=== PATIENT | female | born 1935 ===

== ENCOUNTER 2019-04-01 11:02 | Inpatient (IN) ==
[2019-04-01 15:33] LABS: ABG Base Excess 6 mEq/L (-2 to 3); ABG HCO3 36 mEq/L (21-27); ABG Oxygen Saturation 93 % (95-98); ABG PCO2 78 mmHg (35-45); ABG PH 7.27 pH Units (7.32-7.45); ABG PO2 80 mmHg (85-104); ABG TCO2 38 mEq/L (20-26)
[2019-04-01] MEDS ORDERED: Naloxone 0.4 MG/ML INJ IVP PRN (15:40)
[2019-04-01] MEDS ORDERED: Mag Hydrox/Al Hydrox/Simeth 30 ML UDC PO PRN (15:40)
[2019-04-01] MEDS ORDERED: *HR* Promethazine 25 MG/ML VIAL IVP PRN (15:40)
[2019-04-01] MEDS ORDERED: traMADol 50 MG TABLET PO PRN (15:40)
[2019-04-01] MEDS ORDERED: Acetaminophen 325 MG TABLET PO PRN (15:40)
[2019-04-01] MEDS ORDERED: Ondansetron 4 MG/2 ML VIAL IVP PRN (15:40)
--- NOTE | 2019-04-01 15:57 | Internal Med History&Physical ---
Date of Encounter: 04/01/19 Time of Encounter: 15:48 Internal Medicine - H&P: HPI Admitted From: Home Plans for Post Hospital Care: Home History of present illness: Ms. Torres is a 83 year old female with past medical history significant for h ypertension and osteoarthritis who originally presented to [facility] for shortness of breath associated with generalized weakness, productive cough, nasal congestion and abdominal pain The initial workup at the hospital ED showed sodium 129, proBNP 2552. Pro-calcitonin < 0.05, the rest of CBC and BMP were unremarkable. Cardiac enzyme was negative. EKG demonstrated atrial fibrillation with rapid ventricular response and multiple PVCs. A CT of abdomen/pelvis was performed which revealed moderate ascites with bilateral pleural effusions, cholelithiasis, and aortic atherosclerosis. Patient was admitted and she was started on Cardizem drip and heparin drip. On the third hospital day at [facility], patient was noticed to have change of mental status. At that time, a CT of brain was performed which revealed chronic microvascular changes without bleeding or mass effect. An ABG was obtained which showed respiratory acidosis pH 7.20 with significantly elevated CO2 level at 91. There is a concern that the patient might have a stroke, patient was transferred to this institute for further evaluation and management. Upon arrival to the floor, patient is alert and oriented although somewhat drowsy, her vital signs were stable with heart rate at 85, blood pressure 105/78, 91% on 5 L oxygen per nasal cannula. An ABG was obtained which showed respiratory acidosis with pH 7.27, PCO2 78, this results showed improvement in comparison to from [facility]. CT chest was ordered. Pulmonology was consulted. BiPAP was ordered. CODE STATUS discussed with patient, she wishes to be full code. Internal Medicine - H&P: Meds Allergy/AdvReac Type Severity Reaction Status Date / Time Penicillins Allergy Vomiting Verified 04/01/19 15:09 All Systems PM: A 10-system review of systems was performed and is negative for pertinent findings except as documented above in the HPI. Review of systems: REVIEW OF SYSTEMS: CONSTITUTIONAL: No weight loss, fever, chills, weakness or fatigue. HEENT: Eyes: No visual loss, blurred vision, double vision or yellow sclerae. Ears, Nose, Throat: No hearing loss, sneezing, congestion, runny nose or sore throat. SKIN: No rash or itching. CARDIOVASCULAR: No chest pain, chest pressure or chest discomfort. No palpitations or edema. RESPIRATORY: See history of present illness. GASTROINTESTINAL: No anorexia, nausea, vomiting or diarrhea. See history of present illness. GENITOURINARY: No dysuria, urgency, or frequency. NEUROLOGICAL: No headache, dizziness, syncope, paralysis, ataxia, numbness or tingling in the extremities. No change in bowel or bladder control. MUSCULOSKELETAL: No muscle, back pain, joint pain or stiffness. HEMATOLOGIC: No anemia, bleeding or bruising. LYMPHATICS: No enlarged nodes. No history of splenectomy. PSYCHIATRIC: No history of depression or anxiety. ENDOCRINOLOGIC: No reports of sweating, cold or heat intolerance. No polyuria or polydipsia. - Constitutional Vitals: Temp Pulse Resp BP Pulse Ox 97.8 F 85 18 105/78 91 04/01/19 15:24 04/01/19 15:24 04/01/19 15:24 04/01/19 15:24 04/01/19 15:24 General appearance: Present: A&O X 3 Exam: PHYSICAL EXAMINATION: GENERAL APPEARANCE: The patient is alert, oriented and in no acute distress. HEENT: Head is normocephalic. The sinuses are nontender. Pupils are equal and reactive. The nares are patent. Oropharynx clear without lesions. NECK: Supple without lymphadenopathy. HEART: Regular rate and rhythm. LUNGS: Decreased breathing sounds bilaterally. ABDOMEN: Soft, nontender, nondistended with good bowel sounds heard. Inguinal area is normal. EXTREMITIES: Without cyanosis, clubbing or edema. NEUROLOGICAL: Gross nonfocal. SKIN: Warm and dry without any rash. Internal Med - H&P Results - ABG Interpretation ABG results: 04/01/19 15:28 ABG pH 7.27 L ABG pCO2 78 H* ABG pO2 80 L ABG HCO3 36 H ABG Total CO2 38 H ABG O2 Saturation 93 L ABG Base Excess 6 H - Assessment and Plan (1) Change in mental status Current Visit: Yes Status: Acute Assessment and plan: This is a 83-year-old female with history of hypertension and [facility] failure. She has no history of COPD or CHF. CT abdomen/pelvis showed bilateral moderate amount of pleural effusion and a large amount of ascites. ProBNP was significantly elevated. EKG showed atrial fibrillation with RVR. She was started on Cardizem drip and anticoagulation was also initiated. Patient developed acute mental status change, so the hospital at [facility] and was transferred here for further evaluation. No focal deficit was appreciated on physical exam. CT of head has no acute abnormalities. The etiology of mental status change is likely secondary to systemic disease including acute respiratory failure rather than neurological pathologies such as stroke. We will order MRI of brain to rule out stroke. We will continue to treat the underlying disease including acute respiratory failure. Continue to monitor patient mental status. Qualifiers: Altered mental status type: unspecified Qualified Code(s): R41.82 - Altered mental status, unspecified (2) Acute respiratory failure with hypoxia and hypercapnia Current Visit: Yes Status: Acute Assessment and plan: Patient has no history of COPD. ABG showed respiratory acidosis with significant elevated PCO2 and slightly decreased PO2. CT of abdomen at [facility] showed mode rate amount of pleural effusion bilaterally. ProBNP was also significantly elevated. Clinical picture fits in an acute congestive heart failure. Echocardiogram ordered. Will order CT chest to rule out pulmonary etiologies. Blood culture and sputum culture were ordered. We will start patient on IV Lasix. DuoNeb as needed plus scheduled dose. Broad-spectrum IV antibiotics with cefepime and vancomycin, tailor treatment test on culture results. BiPAP daily at bedtime and as needed. We will repeat ABG in a.m. to monitor progress. Pulmonology consult. (3) Atrial fibrillation Current Visit: Yes Status: Acute Assessment and plan: Rate controlled, will continue low dose of oral Cardizem, continue Eliquis. Qualifiers: Atrial fibrillation type: persistent Qualified Code(s): I48.1 - Persistent atrial fibrillation (4) Acute congestive heart failure Current Visit: Yes Status: Acute Assessment and plan: Continue IV Lasix. Pending echocardiogram. Qualifiers: Heart failure type: unspecified Qualified Code(s): I50.9 - Heart failure, unspecified (5) History of hypertension Current Visit: No Status: Chronic Assessment and plan: BP well controlled, continue home medication. (6) DVT prophylaxis Current Visit: Yes Status: Acute Assessment and plan: Patient on Eliquis. - Time Spent With Patient Total time spent is greater than 50% in coordination of care (as documented) at patient's floor/unit and/or counseling patient: Greater than 35 minutes
[2019-04-01] MEDS ORDERED: Isovue-370 500 ML BOTTLE IVP ONE (16:17)
[2019-04-01] MEDS ORDERED: Ipratropium/Albuterol Neb 3 ML IH PRN (16:18)
[2019-04-01] MEDS ORDERED: Cefepime HCl 2,000 MG in 0.9 % Sodium Chloride Mini Bag 100 ML IVPB ONE (16:31)
[2019-04-01] MEDS: Furosemide 40 MG/4 ML VIAL IVP SCH (17:17)
[2019-04-01 17:46] LABS: eGFR For African Americans > 60 (> 60); eGFR For Non-African Americans > 60 (> 60)
[2019-04-01 17:47] LABS: Troponin I < 0.03 ng/mL (< 0.04)
[2019-04-01] MEDS ORDERED: Perflutren Lipid Microsphere 1.3 ML in 0.9 % Sodium Chloride 8.7 ML IVP ONE (18:31)
[2019-04-01] MEDS: Ipratropium/Albuterol Neb 3 ML IH SCH ×2 (20:24→23:39)
[2019-04-01 20:52] LABS: Basophils % 0.2 %; Hematocrit 40.6 % (35.3-44.9); Hemoglobin 13.1 g/dL (11.5-15.4); Immature Granulocytes % 0.9 % (0-4); Lymphocytes # 1.2 K/mcL (0.6-4.6); Lymphocytes % 9.7 %; Mean Corpuscular HGB Conc 32.3 g/dL (31.6-35.5); Mean Corpuscular Hemoglobin 33.4 pg (28.0-33.3); Mean Corpuscular Volume 103.6 fL (83.0-100.0); Mean Platelet Volume 9.5 fL (9.4-12.4); Monocytes # 0.8 K/mcL (0.0-1.3); Monocytes % 6.9 %; Neutrophils # 9.7 K/mcL (1.6-8.9); Nucleated Red Blood Cells 0.5 /100 WBC (0); Platelet Count 241 K/mcL (140-400); Red Blood Count 3.92 M/mcL (3.82-4.97); Red Cell Distribution Width 13.4 % (11.5-14.5); Segmented Neutrophils % 82.3 %; White Blood Count 11.8 K/mcL (4.3-11.1)
[2019-04-01] MEDS ORDERED: Apixaban 5 MG TABLET PO SCH (21:00)
[2019-04-01 21:15] LABS: Alanine Aminotransferase 55 Units/L (7-52); Albumin 3.8 g/dL (3.5-5.7); Albumin/Globulin Ratio 1.6 (1.1-2.2); Alkaline Phosphatase 57 Units/L (34-104); Aspartate Amino Transferase 35 Units/L (13-39); BUN/Creatinine Ratio 27 (6-26); Bilirubin,Total 0.6 mg/dL (0.3-1.0); Blood Urea Nitrogen 15 mg/dL (8-23); Calcium 8.7 mg/dL (8.6-10.3); Carbon Dioxide 36 mEq/L (23-29); Chloride 86 mEq/L (98-107); Globulin 2.4 g/dL (2.4-3.5); Glucose 132 mg/dL (70-105); Osmolality,Calculated 265 (280-300); Potassium 4.4 mEq/L (3.5-5.1); Sodium 126 mEq/L (136-145); Total Protein 6.2 g/dL (6.4-8.9); eGFR For African Americans > 60 (> 60); eGFR For Non-African Americans > 60 (> 60)
[2019-04-02] MEDS ORDERED: *HR* Enoxaparin 100 MG/ML SYRINGE SQ SCH ×2 (00:45→18:00)
[2019-04-02] MEDS: Ipratropium/Albuterol Neb 3 ML IH SCH ×5 (04:01→20:13)
[2019-04-02 05:35] LABS: Hematocrit 39.3 % (35.3-44.9); Hemoglobin 12.6 g/dL (11.5-15.4); Mean Corpuscular HGB Conc 32.1 g/dL (31.6-35.5); Mean Corpuscular Hemoglobin 33.4 pg (28.0-33.3); Mean Corpuscular Volume 104.2 fL (83.0-100.0); Mean Platelet Volume 9.3 fL (9.4-12.4); Platelet Count 250 K/mcL (140-400); Red Blood Count 3.77 M/mcL (3.82-4.97); Red Cell Distribution Width 13.2 % (11.5-14.5); White Blood Count 10.5 K/mcL (4.3-11.1)
[2019-04-02 05:53] LABS: BUN/Creatinine Ratio 32 (6-26); Blood Urea Nitrogen 18 mg/dL (8-23); Calcium 9.1 mg/dL (8.6-10.3); Carbon Dioxide 34 mEq/L (23-29); Chloride 86 mEq/L (98-107); Glucose 99 mg/dL (70-105); Osmolality,Calculated 270 (280-300); Potassium 4.2 mEq/L (3.5-5.1); Sodium 129 mEq/L (136-145); eGFR For African Americans > 60 (> 60); eGFR For Non-African Americans > 60 (> 60)
[2019-04-02 06:04] LABS: Thyroid Stimulating Hormone 0.923 mcIU/mL (0.340-5.600)
[2019-04-02] MEDS: Cefepime HCl 2,000 MG in Water for inj. (sterile) 20 ML IVP SCH ×2 (06:23→18:02)
--- NOTE | 2019-04-02 07:13 | Event Note ---
Date of Encounter: 04/01/19 Time of Encounter: 21:37 Alerted by pts. nurse AMAURI Antonio that the pt. was admitted w/ respiratory acidosis, CVA rule out, and hyponatremia. Pts. nurse was reporting that the pt. was somnolent and altered and had been so for some time. Pts. family present and concerned. Went to see the pt. immediately who was on BiPAP and minimally responsive. Pt. had CTA of the chest done which showed no evidence of pulmonary embolic disease. Enlarged main pulmonary artery consistent with pulmonary hypertension. Bilateral pleural effusions, right greater than left. Complete right lower lobe atelectasis with dependent left lower lobe and right upper lobe atelectasis. Cardiomegaly with atherosclerotic calcification of the coronary circulation. Elevated right heart pressures with reflux at based fixation of the hepatic veins and IVC. Small quantity of upper abdominal ascites. Cholelithiasis with a 2.1 cm stone projecting in the gallbladder neck. Pts. family denied hx of COPD, respiratory issues, or chirrhosis. I discussed the CTA findings w/family regarding the Pulmonology consult which was ordered and the findings which may suggest liver involvement and pleural effusions which are all working against the pts. respiratory status currently. Patient also has new onset of Afib which was concerning to family d/t anticoagulation needs. D/t pts. somnolence and not passing dysphasia screen, order for Eliquis cancelled and weight-based Lovenox Q12HR ordered. I explained the patient is currently getting 40 mg IVP lasix BID which should help with the pleural effusions. RT called to adjust pts. BiPAP settings d/t ABG w/CO2 of 78. Stat ammonia ordered which was 41, down from 55 at [facility]. Plan is to transfer the pt. to [facility] for higher level of care d/t current picture. Family expressed understanding and agreement to plan of care and f/u. Nurse instructed to continue monitoring the pt. very closely and alert me immediately of any adverse changes. Family and E nurse instructed to contact me with any further questions, concerns, or adverse changes.
[2019-04-02] MEDS: Furosemide 40 MG/4 ML VIAL IVP SCH ×2 (08:42→16:37)
--- NOTE | 2019-04-02 08:45 | Pulmonology Consult Note ---
<Maco Ortez - Last Filed: 04/02/19 09:48> Date of Encounter: 04/02/19 Time of Encounter: 08:41 Assessment and Plan (1) Acute respiratory failure with hypoxia and hypercapnia Current Visit: Yes Status: Acute Pt presented with acute hypoxic respiratory failure - Likely secondary to acute decompensated heart failure - Respiratory distress and need for supplemental Oxygen - ABG pH 7.27, pCO2 78 - Was on BiPAP last night - Blood and sputum cultures pending - Improving - No respiratory distress at rest Plan: - Continue duonebs q4h - Continue diuresesing with lasix - Echo pending - Supplemental O2 via nasal cannula as needed (2) Acute decompensated heart failure Current Visit: Yes Status: Acute Acute decompensated Heart failure - Pt presented with worsening SOB on exertion - Hx of Hypertension - No pedal edema or JVD on exam Zuñiga: - Lasix for diuresis - Echo pending (3) Pulmonary hypertension Current Visit: Yes Status: Acute Pulmonary Hypertension - Enlarged pulmonary artery on CTA chest - Likely secondary to heart failure Plan: - As above (4) Pleural effusion Current Visit: Yes Status: Acute Bilateral pleural effusion - Noted on CTA chest - Respiratory status improving with diuresis - Likely secondary to acute decompensated heart failure Plan: - Will continue to monitor - Consider thoracentesis if it does not improve with diuresis (5) Atrial fibrillation with RVR Current Visit: Yes Status: Acute New onset Afib - Management per primary History of Present Illness Consult date: 04/02/19 Chief complaint: SOB History of present illness: Ms. Torres is an 83-year-old with a past medical history of hypertension and osteoarthritis. She originally presented to [facility] in [place] for shortness of breath with associated generalized weakness. She reported having productive cough of clear sputum for a few days prior to admission. Workup at [facility] showed patient had a CHF exacerbation with atrial fibrillation. ProBNP was 2552, pro calcitonin was less than 0.05, CT abdomen and pelvis revealed moderate ascites with bilateral pleural effusions. She was admitted to [facility] and started on Cardizem drip and heparin drip. On third hospital day at [facility] she was noticed to have a change mental status. CT of brain showed no b leeding or acute intracranial process. ABG showed respiratory acidosis pH 7.20. She was transferred to [facility] for stroke concerns. Sole heart rate is 85, blood pressure 105/78, oxygen saturation 91% on 5 L oxygen via nasal cannula. ABG showed respiratory acidosis with pH 7.27, PCO2 78. CTA chest showed no PE, enlarged pulmonary artery, bilateral pleural effusions, right greater than left, cardiomegaly with atherosclerotic calcification and coronary circulation. EKG showed A. fib with RVR. She was started on IV Lasix, anticoagulation with Lovenox, scheduled DuoNeb's, vancomycin and Ceftin, blood and sputum cultures pending, and pulmonology was consulted. Last night patient was somnolent with altered mental status and concern this patient was minimally responsive. Patient had been on BiPAP. BiPAP settings were adjusted. Patient was transferred due to [facility] for higher level of care. When seen this morning patient was improving, sitting comfortably in bed. She was on 5 L via nasal cannula. She reported no respiratory distress, shortness of breath, or chest pain. Denies history of pulmonary disease, or history of smoking. Past Med Surg Social Fam HX - Past Medical History Medical history: arthritis, hypertension Additional medical history: back pain Psychiatric history: no psych history - Past Surgical History Additional surgical history: lipoma removed - Social History Smoking Status: Never smoker - Family History Mother Hx Family Neuromuscular Disorders: Yes (Stroke) Medications and Allergies Allergy/AdvReac Type Severity Reaction Status Date / Time Penicillins Allergy Vomiting Verified 04/01/19 15:09 All Systems: The remainder of the systems were reviewed and are negative Review of Systems: Constitutional: Reprtos weakness, fatigue. Denies fevers, chills, weight loss Head/Neck: Denies [place], neck stiffness EENT: Reports rhinorrhea, congestion. Denies vision changes/blurriness, sore throat CVS: Denies chest pain, palpitations, orthopnea, edema Pulm: Reports SOB, Cough, clear sputum. Denies hemoptysis, wheezing GI: Denies abdominal pain, nausea, vomiting, diarrhea, constipation, melena, hematemasis : Denies dysuria, increased frequency, urgency, hematuria Heme: Denies ease of bleeding or bruising MSK: Denies joint pain, limited ROM Skin: Denies rashes, ulcers, color changes Neuro: Denies [place], paresthesias, focal deficits, ataxia Physical Examination Vital Signs: Vital Signs, Last 4 Hours Temp Pulse Resp BP Pulse Ox 04/02/19 07:36 16 94 04/02/19 07:31 97.8 F 98 101/66 94 Gen: Vitals noted. No acute distress. On 5L O2 via nasal cannula Eyes: anicteric sclerae, moist conjunctivae. Pupils equal, round, and reactive to light HENT: Atraumatic, normocephalic; oropharynx clear with moist mucous membranes and no mucosal ulcerations Neck: Trachea midline; supple, no thyromegaly or lymphadenopathy Cardiac: Tachycardic, irregular rhythm, no murmurs, rubs, or gallops, S1/S2, No JVD Pulmonary: Decreased breath sounds BL. BL lower lobe crackles. Abdomen: soft, nontender, no rigidity or guarding. No masses or hepatos plenomegaly MSK: ROM intact, no joint swelling noted Extremities: no BLE edema, nontender calf, no cyanosis or clubbing Skin: Normal temperature, turgor and texture; no rash, ulcers or subcutaneous nodules Neuro: moves all extremities, no focal deficits. Psych: Appropriate mood and behavior. A&Ox3 Results - Laboratory Findings CBC and BMP: 04/02/19 05:10 04/02/19 05:10 ABG ABG pH 7.27 pH Units (7.32-7.45) L 04/01/19 15:28 ABG pCO2 78 mmHg (35-45) H* 04/01/19 15:28 ABG pO2 80 mmHg (85-104) L 04/01/19 15:28 ABG O2 Saturation 93 % (95-98) L 04/01/19 15:28 Abnormal lab findings: Abnormal lab results WBC 11.8 K/mcL (4.3-11.1) H 04/01/19 20:35 RBC 3.77 M/mcL (3.82-4.97) L 04/02/19 05:10 MCV 104.2 fL (83.0-100.0) H 04/02/19 05:10 MCH 33.4 pg (28.0-33.3) H 04/02/19 05:10 MPV 9.3 fL (9.4-12.4) L 04/02/19 05:10 Neutrophils # 9.7 K/mcL (1.6-8.9) H 04/01/19 20:35 Nucleated RBCs/100 WBC 0.5 /100 WBC (0) H 04/01/19 20:35 ABG pH 7.27 pH Units (7.32-7.45) L 04/01/19 15:28 ABG pCO2 78 mmHg (35-45) H* 04/01/19 15:28 ABG pO2 80 mmHg (85-104) L 04/01/19 15:28 ABG HCO3 36 mEq/L (21-27) H 04/01/19 15:28 ABG Total CO2 38 mEq/L (20-26) H 04/01/19 15:28 ABG O2 Saturation 93 % (95-98) L 04/01/19 15:28 ABG Base Excess 6 mEq/L (-2 to 3) H 04/01/19 15:28 Sodium 129 mEq/L (136-145) L 04/02/19 05:10 Chloride 86 mEq/L (98-107) L 04/02/19 05:10 Carbon Dioxide 34 mEq/L (23-29) H 04/02/19 05:10 Creatinine 0.57 mg/dL (0.60-1.20) L 04/02/19 05:10 BUN/Creatinine Ratio 32 (6-26) H 04/02/19 05:10 Glucose 132 mg/dL (70-105) H 04/01/19 20:35 POC Glucose 163 mg/dL (70-99) H 04/01/19 15:22 Calculated Osmolality 270 (280-300) L 04/02/19 05:10 ALT 55 Units/L (7-52) H 04/01/19 20:35 B-Natriuretic Peptide 716 pg/mL (Less than 100) H 04/01/19 20:35 Serum Total Protein 6.2 g/dL (6.4-8.9) L 04/01/19 20:35 - Microbiology Findings Microbiology Findings: Microbiology, Last 48 Hours 04/01/19 17:10 Blood Culture - Preliminary Peripheral Venipuncture Culture is incubating and being continuously monitored for growth. Final report to follow. 04/01/19 17:39 Blood Culture - Preliminary Peripheral Venipuncture Culture is incubating and being continuously monitored for growth. Final report to follow. - Clinical Findings Intake & Output: Intake & Output 04/01/19 04/02/19 04/02/19 23:59 07:59 15:59 Intake Total 350 / 350 0 / 0 Output Total 0 / 0 Balance 350 / 350 0 / 0 Weight 88.2 kg 88 kg Consult Discharge Plan - Plan Referrals: Kathrin Bowers, MAYRA [Primary Care Provider] - <Marco Ordaz W - Last Filed: 04/02/19 10:45> Date of Encounter: 04/02/19 All Systems: The remainder of the systems were reviewed and are negative Physical Examination Vital Signs: Vital Signs, Last 4 Hours Temp Pulse Resp BP Pulse Ox 04/02/19 07:36 16 94 04/02/19 07:31 97.8 F 98 101/66 94 Results - Laboratory Findings CBC and BMP: 04/02/19 05:10 04/02/19 05:10 ABG ABG pH 7.27 pH Units (7.32-7.45) L 04/01/19 15:28 ABG pCO2 78 mmHg (35-45) H* 04/01/19 15:28 ABG pO2 80 mmHg (85-104) L 04/01/19 15:28 ABG O2 Saturation 93 % (95-98) L 04/01/19 15:28 Abnormal lab findings: Abnormal lab results WBC 11.8 K/mcL (4.3-11.1) H 04/01/19 20:35 RBC 3.77 M/mcL (3.82-4.97) L 04/02/19 05:10 MCV 104.2 fL (83.0-100.0) H 04/02/19 05:10 MCH 33.4 pg (28.0-33.3) H 04/02/19 05:10 MPV 9.3 fL (9.4-12.4) L 04/02/19 05:10 Neutrophils # 9.7 K/mcL (1.6-8.9) H 04/01/19 20:35 Nucleated RBCs/100 WBC 0.5 /100 WBC (0) H 04/01/19 20:35 ABG pH 7.27 pH Units (7.32-7.45) L 04/01/19 15:28 ABG pCO2 78 mmHg (35-45) H* 04/01/19 15:28 ABG pO2 80 mmHg (85-104) L 04/01/19 15:28 ABG HCO3 36 mEq/L (21-27) H 04/01/19 15:28 ABG Total CO2 38 mEq/L (20-26) H 04/01/19 15:28 ABG O2 Saturation 93 % (95-98) L 04/01/19 15:28 ABG Base Excess 6 mEq/L (-2 to 3) H 04/01/19 15:28 Sodium 129 mEq/L (136-145) L 04/02/19 05:10 Chloride 86 mEq/L (98-107) L 04/02/19 05:10 Carbon Dioxide 34 mEq/L (23-29) H 04/02/19 05:10 Creatinine 0.57 mg/dL (0.60-1.20) L 04/02/19 05:10 BUN/Creatinine Ratio 32 (6-26) H 04/02/19 05:10 Glucose 132 mg/dL (70-105) H 04/01/19 20:35 POC Glucose 163 mg/dL (70-99) H 04/01/19 15:22 Calculated Osmolality 270 (280-300) L 04/02/19 05:10 ALT 55 Units/L (7-52) H 04/01/19 20:35 B-Natriuretic Peptide 716 pg/mL (Less than 100) H 04/01/19 20:35 Serum Total Protein 6.2 g/dL (6.4-8.9) L 04/01/19 20:35 - Microbiology Findings Microbiology Findings: Microbiology, Last 48 Hours 04/01/19 17:10 Blood Culture - Preliminary Peripheral Venipuncture Culture is incubating and being continuously monitored for growth. Final report to follow. 04/01/19 17:39 Blood Culture - Preliminary Peripheral Venipuncture Culture is incubating and being continuously monitored for growth. Final report to follow. - Clinical Findings Intake & Output: Intake & Output 04/01/19 04/02/19 04/02/19 23:59 07:59 15:59 Intake Total 350 / 350 0 / 120 120 / 120 Output Total 0 / 0 Balance 350 / 350 0 / 120 120 / 120 Weight 88.2 kg 88 kg - Attending Attestation I examined this patient and my medical decision-making was reviewed with the Resident Physician. I agree with the documented findings, disposition and treatment plan as described except to the extent set forth below. We independently had [id number] contact with the patient Patient seen and examined at bedside Labs, radiology, chart personally reviewed. CT personally interpreted: Right elevated hemithorax. Bilateral effusions right greater than left Impression/Recs: 1. Acute hypoxic hypercapnic respiratory failure 2. Decompensated heart failure 3. Bilateral pleural effusions 4. A. fib with RVR 5. Pulmonary hypertension Recs: -Recommend conservative management of pleural effusions at this point doubt that thoracentesis would provide much benefit from patient comfort or improvement in hypoxemia. These are undoubtedly from heart failure. If further concern exists per primary team Lovenox should be held and would recommend consultation with interventional radiology for therapeutic thoracentesis -Agree with diuretic - trend renal function and electrolytes including magnesium daily -BiPAP as needed of the day for work of breathing I suspect over the next 24-48 hours she will benefit from positive airway pressure at night otherwise keep oxygen saturation around 90-92% at all times she will likely need walking pulse oximetry prior to discharge -Suspect the etiology of pulmonary hypertension is secondary to pulmonary venous hypertension from left heart failure -Echocardiogram is warranted along with formal cardiology consultation -Management of A. fib per primary team Do not hesitate to call me with any questions or concerns Mohit Ordaz [phone]
--- NOTE | 2019-04-02 09:30 | Neurology - Consult Note ---
<Matty Hoskins - Last Filed: 04/02/19 13:07> Date of Encounter: 04/02/19 Time of Encounter: 09:27 Assessment and Plan (1) Change in mental status Current Visit: Yes Status: Acute Presented from an [facility] with AMS and concerns for CVA -originally presented to [facility] with weakness, fatigue and in a-fib with RVR -subsequently developed AMS and acute hypoxic respiratory failure with hypercapnea 2/2 acute decompensated HF Neurologically she is intact today without any focal or lateralizing findings. Family reports that she is almost back to baseline. AMS most likely 2/2 HF and respiratory failure; being managed by IM team. However, we will r/o an acute ischemic event and r/o seizure etiology as well; although low suspicion for both. MRI brain and EEG pending. Qualifiers: Altered mental status type: unspecified Qualified Code(s): R41.82 - Altered mental status, unspecified History of Present Illness Chief complaint: Altered mental state HPI: Ms. Torres is a 83 year old female with a PMH of HTN and OA who presented to [facility] from [facility] with an altered mental state in the setting of new a-fib RVR and acute decompensated heart failure and subsequent acute hypoxic respiratory with hypercapnea. [facility] for [facility] and thusly the patient was transferred and neurology evaluation has been sought. Currently she is A&OX4 and progressing back to her baseline mental state per her family who is at the bedside. She denies any visual disturbances, headache, neck pain/stiffness, dysphagia, dysarthria, parasthesias or motor weakness. She does admits to having dyspnea, generalized weakness and URI sx with cough and congestion prior to admission at [facility] (sx began approximately 4 days ago). These sx persist now as well and currently she is O2 dependent. CT head unremarkable. CTA chest negative for PE, ut shows b/l pleural effusions, right greater than left, complete right lower lobe atelectasis with dependent left lower lobe and right lower lobe atelectasis, cardiomegaly with elevated right heart pressures with reflux opacification of the hepatic veins. ABG on admission positive for acute hypoxic respiratory failure with hypercapnea. Past Med Surg Social Fam HX - Past Medical History Medical history: arthritis, hypertension Additional medical history: back pain Psychiatric history: no psych history - Past Surgical History Additional surgical history: lipoma removed - Social History Smoking Status: Never smoker - Family History Mother Hx Family Neuromuscular Disorders: Yes (Stroke) Medications and Allergies Allergy/AdvReac Type Severity Reaction Status Date / Time Penicillins Allergy Vomiting Verified 04/01/19 15:09 All Systems: The remainder of the systems were reviewed and are negative Review of Systems: REVIEW OF SYSTEMS NEUROLOGIC: Negative for any blurry vision, blind spots, double vision, facial asymmetry, dysphagia, dysarthria, hemiparesis, hemisensory deficits, vertigo, ataxia, seizures, paralysis, tingling, numbness, unilateral weakness or numbness/tingling POSITIVE: altered mental state PSYCH: agitation/irritability, anxiety, delirium POSITIVE: confusion MUSCULOSKELETAL: NEGATIVE: Joint pain, stiffness, loss of strength Physical Examination - Vital Signs Vital Signs: Initial Vital Signs Temp Pulse Resp BP Pulse Ox 97.8 F 85 18 105/78 91 04/01/19 15:24 04/01/19 15:24 04/01/19 15:24 04/01/19 15:24 04/01/19 15:24 - Exam Exam: Examination: General Examination: *CONSTITUTIONAL: Alert and oriented x3, no acute distress *GENERAL APPEARANCE OF PATIENT Elderly female who appears healthy and well groomed *EYES: pupils equal, round, reactive to light and accommodation, conjunctiva clear without masses or ulcerations, fundi normal. *CARDIOVASCULAR: no peripheral edema, distal temperature normal, dorsalis pedis pulses normal. Refer to vital signs * MUSCULOSKELETAL: *GAIT AND STATION: Deferred *ASSESSMENT OF MUSCLE STRENGTH IN THE UPPER AND LOWER EXTREMITIES bilateral deltoid, bicep, tricep, activities coordinator strength 4/5, hip flexors ,anterior tibialis, dorsoflexion of the foot 3/5 *MUSCLE TONE IN THE UPPER AND LOWER EXTREMITIES normal. No abnormal movements, fasciculations or atrophy identified. Neurological: *ORIENTATION to person, time and place *LANGUAGE AND FUNCTION no significant aphasia or dysarthia was noted. *ATTENTION AND CONCENTRATION are normal *LANGUAGE FUNCTION no significant aphasia or dysarthia was noted. *FUND OF KNOWLEDGE aware of current events, past history, vocabulary *MENTAL attention span and concentration normal. *CN II optic fundi were normal, no papilledema noted. *CN III,IV, PERRLA extraocular eye movements were full, no nystagmus and no ptosis noted. *CN V shows normal sensation and jaw opens symmetrically. *CN VII shows normal facial movement symmetrically, upper and lower bilaterally. *CN VIII shows no significant hearing loss on exam *CN IX-X palate elevated symmetrically *CN XI normal strength in the sternocleidomastoid muscles, symmetrical shoulder shrugging. *CN XII tongue protruded in the midline, with normal strength and movement. *SENSORY EXAMINATION light touch intact *REFLEXES: deep tendon reflexes were diminished diffusely, no pathological reflexes were noted. *CEREBELLAR TESTING normal finger to nose *PAIN LEVEL 0/10 Results - Laboratory Findings CBC and BMP: 04/02/19 05:10 04/02/19 05:10 Abnormal lab findings: Abnormal lab results WBC 11.8 K/mcL (4.3-11.1) H 04/01/19 20:35 RBC 3.77 M/mcL (3.82-4.97) L 04/02/19 05:10 MCV 104.2 fL (83.0-100.0) H 04/02/19 05:10 MCH 33.4 pg (28.0-33.3) H 04/02/19 05:10 MPV 9.3 fL (9.4-12.4) L 04/02/19 05:10 Neutrophils # 9.7 K/mcL (1.6-8.9) H 04/01/19 20:35 Nucleated RBCs/100 WBC 0.5 /100 WBC (0) H 04/01/19 20:35 ABG pH 7.27 pH Units (7.32-7.45) L 04/01/19 15:28 ABG pCO2 78 mmHg (35-45) H* 04/01/19 15:28 ABG pO2 80 mmHg (85-104) L 04/01/19 15:28 ABG HCO3 36 mEq/L (21-27) H 04/01/19 15:28 ABG Total CO2 38 mEq/L (20-26) H 04/01/19 15:28 ABG O2 Saturation 93 % (95-98) L 04/01/19 15:28 ABG Base Excess 6 mEq/L (-2 to 3) H 04/01/19 15:28 Sodium 129 mEq/L (136-145) L 04/02/19 05:10 Chloride 86 mEq/L (98-107) L 04/02/19 05:10 Carbon Dioxide 34 mEq/L (23-29) H 04/02/19 05:10 Creatinine 0.57 mg/dL (0.60-1.20) L 04/02/19 05:10 BUN/Creatinine Ratio 32 (6-26) H 04/02/19 05:10 Glucose 132 mg/dL (70-105) H 04/01/19 20:35 POC Glucose 163 mg/dL (70-99) H 04/01/19 15:22 Calculated Osmolality 270 (280-300) L 04/02/19 05:10 ALT 55 Units/L (7-52) H 04/01/19 20:35 B-Natriuretic Peptide 716 pg/mL (Less than 100) H 04/01/19 20:35 Serum Total Protein 6.2 g/dL (6.4-8.9) L 04/01/19 20:35 Consult Discharge Plan - Plan Referrals: Kathrin Bowers CNP [Primary Care Provider] - <Donaldo Cuenca I - Last Filed: 04/02/19 15:37> Date of Encounter: 04/02/19 Assessment and Plan (1) Change in mental status Current Visit: Yes Status: Acute I have personally performed a face to face diagnostic evaluation, including HPI, EXAM, which is included in the Assesment and plan, which was discussed with Matty Hoskins CNP, I agree with the above outlined documentation. Patient seemed to be alert awake and oriented to now able to follow simple commands and no focal neurological deficit noted on examination. Considering all assist suspect her symptoms are likely related to hypoxemia and hypercapnia especially with these fluctuating mental status We do need to exclude any infectious etiology as well as any metabolic abnormalities causing this patient's symptoms will get an EEG to exclude possibility of any nonconvulsive seizures really doubt that it was a stroke but she scheduled for an MRI will follow the result Donaldo Cuenca MD. NeurologyI Qualifiers: Altered mental status type: transient alteration of awareness Qualified Code(s): R40.4 - Transient alteration of awareness History of Present Illness HPI: Ms. Torres is a 83 year old female All Systems: The remainder of the systems were reviewed and are negative Physical Examination - Vital Signs Vital Signs: Initial Vital Signs Temp Pulse Resp BP Pulse Ox 97.8 F 85 18 105/78 91 04/01/19 15:24 04/01/19 15:24 04/01/19 15:24 04/01/19 15:24 04/01/19 15:24 Results - Laboratory Findings CBC and BMP: 04/02/19 05:10 04/02/19 05:10 Abnormal lab findings: Abnormal lab results WBC 11.8 K/mcL (4.3-11.1) H 04/01/19 20:35 RBC 3.77 M/mcL (3.82-4.97) L 04/02/19 05:10 MCV 104.2 fL (83.0-100.0) H 04/02/19 05:10 MCH 33.4 pg (28.0-33.3) H 04/02/19 05:10 MPV 9.3 fL (9.4-12.4) L 04/02/19 05:10 Neutrophils # 9.7 K/mcL (1.6-8.9) H 04/01/19 20:35 Nucleated RBCs/100 WBC 0.5 /100 WBC (0) H 04/01/19 20:35 ABG pH 7.27 pH Units (7.32-7.45) L 04/01/19 15:28 ABG pCO2 78 mmHg (35-45) H* 04/01/19 15:28 ABG pO2 80 mmHg (85-104) L 04/01/19 15:28 ABG HCO3 36 mEq/L (21-27) H 04/01/19 15:28 ABG Total CO2 38 mEq/L (20-26) H 04/01/19 15:28 ABG O2 Saturation 93 % (95-98) L 04/01/19 15:28 ABG Base Excess 6 mEq/L (-2 to 3) H 04/01/19 15:28 Sodium 129 mEq/L (136-145) L 04/02/19 05:10 Chloride 86 mEq/L (98-107) L 04/02/19 05:10 Carbon Dioxide 34 mEq/L (23-29) H 04/02/19 05:10 Creatinine 0.57 mg/dL (0.60-1.20) L 04/02/19 05:10 BUN/Creatinine Ratio 32 (6-26) H 04/02/19 05:10 Glucose 132 mg/dL (70-105) H 04/01/19 20:35 POC Glucose 163 mg/dL (70-99) H 04/01/19 15:22 Calculated Osmolality 270 (280-300) L 04/02/19 05:10 ALT 55 Units/L (7-52) H 04/01/19 20:35 B-Natriuretic Peptide 716 pg/mL (Less than 100) H 04/01/19 20:35 Serum Total Protein 6.2 g/dL (6.4-8.9) L 04/01/19 20:35
[2019-04-02] MEDS ORDERED: Aminoglycoside Consult 1 EACH MC ONE (13:04)
--- NOTE | 2019-04-02 13:36 | Internal Med Progress Note ---
Hospitalist Progress Note - Encounter Date of Encounter: 04/02/19 Time of Encounter: 13:34 - Subjective Interval History: Patient doing much better this morning. Is awake and alert. Is able to conduct a conversation but does talk about different things and related to the question. She continues to have some shortness of breath. Denies any chest pain. No abdominal pain. No fever noted. She did notice palpitations yesterday. - Exam Vitals: Temp Pulse Resp BP Pulse Ox 97.8 F 98 16 101/66 91 04/02/19 07:31 04/02/19 07:31 04/02/19 10:52 04/02/19 07:04/02/19 10:52 Exam: General: Patient is alert, mild distress, oriented x 3 ENT: Mucous membranes moist Respiratory: Prolonged expiratory phase, diminished breath sounds at both bases. Cardiovascular: Irregularly irregular rhythm with tachycardia. s1 and s2 normal No clicks, rubs, gallops, or murmurs. No pedal edema Abdomen: Abdomen is soft, nontender. Bowel sounds are present Musculoskeletal: Spontaneously moving all extremities Skin: warm, dry, intact. Neuro: Alert oriented x 3 normal cranial nerves, no focal deficits - Assessment and Plan (1) Acute respiratory failure with hypoxia and hypercapnia Current Visit: Yes Status: Acute (2) Atrial fibrillation Current Visit: Yes Status: Acute (3) Acute congestive heart failure Current Visit: Yes Status: Acute (4) History of hypertension Current Visit: No Status: Chronic (5) DVT prophylaxis Current Visit: Yes Status: Acute (6) Change in mental status Current Visit: Yes Status: Acute DVT Prophylaxis: Stop Lovenox. Resume Eliquis. - Summary of Assessment and Plan Summary of Assessment and Plan: Acute hypoxic/hypercapnic respiratory failure: Improving. ABG done here does show elevated PCO2 but this has improved from her values at [facility]. Patient is presently on 5 L nasal cannula. Continue to use BiPAP as needed. Neurology consult appreciated. Acute decompensated heart failure: Most likely right-sided heart failure. C oliva Sanchez. Awaiting 2-D echocardiogram results. Pulmonary hypertension: Per CT chest reports patient does have signs of pulmonary hypertension. Continue O2 supplementation. We will arrange for outpatient follow-up. Bacterial pneumonia: Suspected pneumonia. On broad-spectrum antibiotics. We will continue for now while we await culture results. Hyponatremia: Improving. Sodium 129 today. Altered mental status/acute encephalopathy: Most likely metabolic encephalopathy due to hypercapnia and hypoxia along with underlying pneumonia. Improving. Neurology consulted to evaluate patient. MRI of the brain pending. Atrial fibrillation with RVR: Heart rate was elevated this morning but has improved. Continue Cardizem. On anticoagulation with Lovenox. Will switch factor Eliquis as patient is now more awake and alert and can tolerate oral medications. High risk for complications. - Time Spent with Patient Total time spent is greater than 50% in coordination of care (as documented) at patient's floor/unit and/or counseling patient: Internal Medicine: Result - Labs CBC & Chem 7: 04/02/19 05:10 04/02/19 05:10 Labs: Short CBC 04/01/19 04/02/19 Range/Units 20:35 05:10 WBC 11.8 H 10.5 (4.3-11.1) K/mcL Hgb 13.1 12.6 (11.5-15.4) g/dL Hct 40.6 39.3 (35.3-44.9) % Plt Count 241 250 (140-400) K/mcL Neutrophils # 9.7 H (1.6-8.9) K/mcL BMP 04/01/19 04/01/19 04/02/19 17:10 20:35 05:10 Sodium 126 L 129 L Potassium 4.4 4.2 Chloride 86 L 86 L Carbon Dioxide 36 H 34 H BUN 15 18 Creatinine 0.55 L 0.55 L 0.57 L Glucose 132 H 99 Calcium 8.7 9.1 Cardiac Enzymes 04/01/19 04/01/19 Range/Units 17:10 20:35 Troponin I < 0.03 < 0.03 (< 0.04) ng/mL Liver Function 04/01/19 Range/Units 20:35 Total Bilirubin 0.6 (0.3-1.0) mg/dL AST 35 (13-39) Units/L ALT 55 H (7-52) Units/L Alkaline Phosphatase 57 (34-104) Units/L Albumin 3.8 (3.5-5.7) g/dL - ABG Interpretation ABG results: ABG ABG pH 7.27 pH Units (7.32-7.45) L 04/01/19 15:28 ABG pCO2 78 mmHg (35-45) H* 04/01/19 15:28 ABG pO2 80 mmHg (85-104) L 04/01/19 15:28 ABG O2 Saturation 93 % (95-98) L 04/01/19 15:28 - Impressions Impressions Chest CTA 04/01/19 16:17 IMPRESSION: 1. No evidence of pulmonary embolic disease. Enlarged main pulmonary artery consistent with pulmonary hypertension. 2. Bilateral pleural effusions, right greater than left. Complete right lower lobe atelectasis with dependent left lower lobe and right upper lobe atelectasis. 3. Cardiomegaly with atherosclerotic calcification in the coronary circulation. Elevated right heart pressures with reflux opacification of the hepatic veins and IVC. 4. Cholelithiasis. Small quantity of upper abdominal ascites. D/ / 04/01/2019 19:05:07 Mahendra Shah MD / paolo Interpreting Provider: Mahendra Shah MD Consult Discharge Plan - Plan Referrals: Kathrin Bowers CNP [Primary Care Provider] - (2) Atrial fibrillation Qualifiers: Atrial fibrillation type: persistent Qualified Code(s): I48.1 - Persistent atrial fibrillation (3) Acute congestive heart failure Qualifiers: Heart failure type: unspecified Qualified Code(s): I50.9 - Heart failure, unspecified (6) Change in mental status Qualifiers: Altered mental status type: transient alteration of awareness Qualified Code(s): R40.4 - Transient alteration of awareness
[2019-04-02] MEDS: Apixaban 5 MG TABLET PO SCH (19:47)
[2019-04-03] MEDS: Ipratropium/Albuterol Neb 3 ML IH SCH ×6 (00:06→19:55)
[2019-04-03 03:48] LABS: Hematocrit 35.6 % (35.3-44.9); Hemoglobin 11.6 g/dL (11.5-15.4); Mean Corpuscular HGB Conc 32.6 g/dL (31.6-35.5); Mean Corpuscular Hemoglobin 33.5 pg (28.0-33.3); Mean Corpuscular Volume 102.9 fL (83.0-100.0); Mean Platelet Volume 9.1 fL (9.4-12.4); Platelet Count 211 K/mcL (140-400); Red Blood Count 3.46 M/mcL (3.82-4.97); Red Cell Distribution Width 13.2 % (11.5-14.5); White Blood Count 8.7 K/mcL (4.3-11.1)
[2019-04-03 04:06] LABS: BUN/Creatinine Ratio 40 (6-26); Blood Urea Nitrogen 22 mg/dL (8-23); Calcium 8.7 mg/dL (8.6-10.3); Carbon Dioxide 37 mEq/L (23-29); Chloride 86 mEq/L (98-107); Glucose 137 mg/dL (70-105); Osmolality,Calculated 271 (280-300); Potassium 3.8 mEq/L (3.5-5.1); Sodium 128 mEq/L (136-145); eGFR For African Americans > 60 (> 60); eGFR For Non-African Americans > 60 (> 60)
[2019-04-03] MEDS: Cefepime HCl 2,000 MG in Water for inj. (sterile) 20 ML IVP SCH ×2 (06:40→17:19)
--- NOTE | 2019-04-03 09:45 | Neurology Progress Note ---
<Matty Hoskins J - Last Filed: 04/03/19 09:42> Date of Encounter: 04/03/19 Time of Encounter: 09:42 Assessment and Plan (1) Change in mental status Current Visit: Yes Status: Acute Neurology seeing for altered mental state rule out [employer] ASSEMBLER etiology MRI unremarkable Patient is back to baseline today, alert and oriented 4. Neurological exam is nonfocal and nonlateralizing. Of note she presented with acute hypoxic respiratory failure with hypercapnia which is likely the cause of fluctuating mental status No further workup recommended from neurology's perspective Neurology will sign off at this time. Subjective Principal diagnosis: Altered mental state Interval history: Seen in follow-up for altered mental state rule out central nervous system etiology. MRI of brain negative for acute infarct. Patient is alert and oriented 4 today, she is able to maintain a conversation that process interruption and without need for reorientation. Her main concerns morning or in regards to her shortness of breath. I am team managing. Objective - Constitutional Vitals: Temp Pulse Resp BP Pulse Ox 97.8 F 95 18 112/59 96 04/03/19 07:17 04/03/19 07:17 04/03/19 07:44 04/03/19 07:44 04/03/19 07:44 Exam: Examination: General Examination: *CONSTITUTIONAL: Alert and oriented x4, no acute distress *GENERAL APPEARANCE OF PATIENT Elderly female who appears healthy and well groomed *EYES: pupils equal, round, reactive to light and accommodation, conjunctiva clear without masses or ulcerations, fundi normal. *CARDIOVASCULAR: no peripheral edema, distal temperature normal, dorsalis pedis pulses normal. Refer to vital signs * MUSCULOSKELETAL: *GAIT AND STATION: Deferred *ASSESSMENT OF MUSCLE STRENGTH IN THE UPPER AND LOWER EXTREMITIES bilateral deltoid, bicep, tricep, butcher's assistant strength 4/5, hip flexors ,anterior tibialis, dorsoflexion of the foot 3/5 (reports leg weakness is chronic) *MUSCLE TONE IN THE UPPER AND LOWER EXTREMITIES normal. No abnormal movements, fasciculations or atrophy identified. Neurological: *ORIENTATION to person, time and place *LANGUAGE AND FUNCTION no significant aphasia or dysarthia was noted. *ATTENTION AND CONCENTRATION are normal *LANGUAGE FUNCTION no significant aphasia or dysarthia was noted. *FUND OF KNOWLEDGE aware of current events, past history, vocabulary *MENTAL attention span and concentration normal. *CN II optic fundi were normal, no papilledema noted. *CN III,IV, PERRLA extraocular eye movements were full, no nystagmus and no ptosis noted. *CN V shows normal sensation and jaw opens symmetrically. *CN VII shows normal facial movement symmetrically, upper and lower bilaterally. *CN VIII shows no significant hearing loss on exam *CN IX-X palate elevated symmetrically *CN XI normal strength in the sternocleidomastoid muscles, symmetrical shoulder shrugging. *CN XII tongue protruded in the midline, with normal strength and movement. *SENSORY EXAMINATION light touch intact *REFLEXES: deep tendon reflexes were diminished diffusely, no pathological reflexes were noted. *CEREBELLAR TESTING normal finger to nose *PAIN LEVEL 0/10 Results - Laboratory Findings CBC and BMP: 04/03/19 03:37 04/03/19 03:37 Abnormal lab findings: Abnormal lab results WBC 11.8 K/mcL (4.3-11.1) H 04/01/19 20:35 RBC 3.46 M/mcL (3.82-4.97) L 04/03/19 03:37 MCV 102.9 fL (83.0-100.0) H 04/03/19 03:37 MCH 33.5 pg (28.0-33.3) H 04/03/19 03:37 MPV 9.1 fL (9.4-12.4) L 04/03/19 03:37 Neutrophils # 9.7 K/mcL (1.6-8.9) H 04/01/19 20:35 Nucleated RBCs/100 WBC 0.5 /100 WBC (0) H 04/01/19 20:35 ABG pH 7.27 pH Units (7.32-7.45) L 04/01/19 15:28 ABG pCO2 78 mmHg (35-45) H* 04/01/19 15:28 ABG pO2 80 mmHg (85-104) L 04/01/19 15:28 ABG HCO3 36 mEq/L (21-27) H 04/01/19 15:28 ABG Total CO2 38 mEq/L (20-26) H 04/01/19 15:28 ABG O2 Saturation 93 % (95-98) L 04/01/19 15:28 ABG Base Excess 6 mEq/L (-2 to 3) H 04/01/19 15:28 Sodium 128 mEq/L (136-145) L 04/03/19 03:37 Chloride 86 mEq/L (98-107) L 04/03/19 03:37 Carbon Dioxide 37 mEq/L (23-29) H 04/03/19 03:37 Creatinine 0.55 mg/dL (0.60-1.20) L 04/03/19 03:37 BUN/Creatinine Ratio 40 (6-26) H 04/03/19 03:37 Glucose 137 mg/dL (70-105) H 04/03/19 03:37 POC Glucose 163 mg/dL (70-99) H 04/01/19 15:22 Calculated Osmolality 271 (280-300) L 04/03/19 03:37 ALT 55 Units/L (7-52) H 04/01/19 20:35 B-Natriuretic Peptide 716 pg/mL (Less than 100) H 04/01/19 20:35 Serum Total Protein 6.2 g/dL (6.4-8.9) L 04/01/19 20:35 Consult Discharge Plan - Plan Referrals: Kathrin Bowers CNP [Primary Care Provider] - <Donaldo Cuenca I - Last Filed: 04/03/19 11:59> Date of Encounter: 04/03/19 Assessment and Plan (1) Change in mental status Current Visit: Yes Status: Acute I have personally performed a face to face diagnostic evaluation, including H PI, EXAM, which is included in the Assesment and plan, which was discussed with Matty Hoskins CNP, I agree with the above outlined documentation. Patient is alert awake and oriented considering her overall symptom I suspect it is likely related to hypercapnia No focal motor deficit on examination she is already on BiPAP suggest follow-up recommendations from the primary team Call us if needed Donaldo Cuenca MD. NeurologyI Qualifiers: Altered mental status type: transient alteration of awareness Qualified Code(s): R40.4 - Transient alteration of awareness Objective - Constitutional Vitals: Temp Pulse Resp BP Pulse Ox 97.8 F 104 18 128/88 94 04/03/19 11:47 04/03/19 11:47 04/03/19 11:47 04/03/19 11:47 04/03/19 11:47 Results - Laboratory Findings CBC and BMP: 04/03/19 03:37 04/03/19 03:37 Abnormal lab findings: Abnormal lab results WBC 11.8 K/mcL (4.3-11.1) H 04/01/19 20:35 RBC 3.46 M/mcL (3.82-4.97) L 04/03/19 03:37 MCV 102.9 fL (83.0-100.0) H 04/03/19 03:37 MCH 33.5 pg (28.0-33.3) H 04/03/19 03:37 MPV 9.1 fL (9.4-12.4) L 04/03/19 03:37 Neutrophils # 9.7 K/mcL (1.6-8.9) H 04/01/19 20:35 Nucleated RBCs/100 WBC 0.5 /100 WBC (0) H 04/01/19 20:35 ABG pH 7.27 pH Units (7.32-7.45) L 04/01/19 15:28 ABG pCO2 78 mmHg (35-45) H* 04/01/19 15:28 ABG pO2 80 mmHg (85-104) L 04/01/19 15:28 ABG HCO3 36 mEq/L (21-27) H 04/01/19 15:28 ABG Total CO2 38 mEq/L (20-26) H 04/01/19 15:28 ABG O2 Saturation 93 % (95-98) L 04/01/19 15:28 ABG Base Excess 6 mEq/L (-2 to 3) H 04/01/19 15:28 Sodium 128 mEq/L (136-145) L 04/03/19 03:37 Chloride 86 mEq/L (98-107) L 04/03/19 03:37 Carbon Dioxide 37 mEq/L (23-29) H 04/03/19 03:37 Creatinine 0.55 mg/dL (0.60-1.20) L 04/03/19 03:37 BUN/Creatinine Ratio 40 (6-26) H 04/03/19 03:37 Glucose 137 mg/dL (70-105) H 04/03/19 03:37 POC Glucose 163 mg/dL (70-99) H 04/01/19 15:22 Calculated Osmolality 271 (280-300) L 04/03/19 03:37 ALT 55 Units/L (7-52) H 04/01/19 20:35 B-Natriuretic Peptide 716 pg/mL (Less than 100) H 04/01/19 20:35 Serum Total Protein 6.2 g/dL (6.4-8.9) L 04/01/19 20:35
--- NOTE | 2019-04-03 09:46 | Pulmonology Progress Note ---
<Maco Ortez - Last Filed: 04/03/19 09:40> Date of Encounter: 04/03/19 Time of Encounter: 09:41 Assessment and Plan (1) Acute respiratory failure with hypoxia and hypercapnia Current Visit: Yes Status: Acute Pt presented with acute hypoxic respiratory failure - Likely secondary to acute decompensated heart failure - Respiratory distress and need for supplemental Oxygen - ABG pH 7.27, pCO2 78 - Was on BiPAP last night - Blood cultures pending - Improving - No respiratory distress at rest Plan: - Continue duonebs q4h - Continue Diuretic - Echo: LVEF 50-55%, Severe tricuspid regurgitation - BiPAP as needed (2) Acute decompensated heart failure Current Visit: Yes Status: Acute Acute decompensated Heart failure - Pt presented with worsening SOB on exertion - Hx of Hypertension - No pedal edema or JVD on exam Zuñiga: - Continue diuretics - Care per primary (3) Pulmonary hypertension Current Visit: Yes Status: Acute Pulmonary Hypertension - Enlarged pulmonary artery on CTA chest - Likely secondary to heart failure Plan: - As above (4) Pleural effusion Current Visit: Yes Status: Acute Bilateral pleural effusion - Noted on CTA chest - Respiratory status improving with diuresis - Likely secondary to acute decompensated heart failure Plan: - Will continue to monitor - Consider thoracentesis if it does not improve with diuresis (5) Atrial fibrillation with RVR Current Visit: Yes Status: Acute New onset Afib - Management per primary Subjective Interval history: Patient seen and examined. Afebrile. No overnight events. Patient was on BiPAP overnight. Patient breathing comfortably, denies shortness of breath. Remains on 6 L nasal cannula, saturating well. Objective PUL Vital signs: Last Vital Signs Temp 97.8 F 04/03/19 07:17 Pulse 95 04/03/19 07:17 Resp 18 04/03/19 07:44 BP 112/59 04/03/19 07:44 Pulse Ox 96 04/03/19 07:44 Gen: Vitals noted. No acute distress. On 6L O2 via nasal cannula Eyes: anicteric sclerae, moist conjunctivae. Pupils equal, round, and reactive to light HENT: Atraumatic, normocephalic. Oropharynx clear with moist mucous membranes and no mucosal ulcerations Neck: Trachea midline; supple, no thyromegaly or lymphadenopathy Cardiac: Tachycardic, irregular rhythm, no murmurs, rubs, or gallops, S1/S2, No JVD Pulmonary: Coarse breath sounds BL. BL lower lobe crackles. Abdomen: soft, nontender, no rigidity or guarding. No masses or hepatosplenomegaly MSK: ROM intact, no joint swelling noted Extremities: no BLE edema, nontender calf, no cyanosis or clubbing Skin: Normal temperature, turgor and texture; no rash, ulcers or subcutaneous nodules Neuro: moves all extremities, no focal deficits. Results - Laboratory Findings CBC and BMP: 04/03/19 03:37 04/03/19 03:37 ABG ABG pH 7.27 pH Units (7.32-7.45) L 04/01/19 15:28 ABG pCO2 78 mmHg (35-45) H* 04/01/19 15:28 ABG pO2 80 mmHg (85-104) L 04/01/19 15:28 ABG O2 Saturation 93 % (95-98) L 04/01/19 15:28 Abnormal lab findings: Abnormal lab results WBC 11.8 K/mcL (4.3-11.1) H 04/01/19 20:35 RBC 3.46 M/mcL (3.82-4.97) L 04/03/19 03:37 MCV 102.9 fL (83.0-100.0) H 04/03/19 03:37 MCH 33.5 pg (28.0-33.3) H 04/03/19 03:37 MPV 9.1 fL (9.4-12.4) L 04/03/19 03:37 Neutrophils # 9.7 K/mcL (1.6-8.9) H 04/01/19 20:35 Nucleated RBCs/100 WBC 0.5 /100 WBC (0) H 04/01/19 20:35 ABG pH 7.27 pH Units (7.32-7.45) L 04/01/19 15:28 ABG pCO2 78 mmHg (35-45) H* 04/01/19 15:28 ABG pO2 80 mmHg (85-104) L 04/01/19 15:28 ABG HCO3 36 mEq/L (21-27) H 04/01/19 15:28 ABG Total CO2 38 mEq/L (20-26) H 04/01/19 15:28 ABG O2 Saturation 93 % (95-98) L 04/01/19 15:28 ABG Base Excess 6 mEq/L (-2 to 3) H 04/01/19 15:28 Sodium 128 mEq/L (136-145) L 04/03/19 03:37 Chloride 86 mEq/L (98-107) L 04/03/19 03:37 Carbon Dioxide 37 mEq/L (23-29) H 04/03/19 03:37 Creatinine 0.55 mg/dL (0.60-1.20) L 04/03/19 03:37 BUN/Creatinine Ratio 40 (6-26) H 04/03/19 03:37 Glucose 137 mg/dL (70-105) H 04/03/19 03:37 POC Glucose 163 mg/dL (70-99) H 04/01/19 15:22 Calculated Osmolality 271 (280-300) L 04/03/19 03:37 ALT 55 Units/L (7-52) H 04/01/19 20:35 B-Natriuretic Peptide 716 pg/mL (Less than 100) H 04/01/19 20:35 Serum Total Protein 6.2 g/dL (6.4-8.9) L 04/01/19 20:35 - Microbiology Findings Microbiology Findings: Microbiology, Last 48 Hours 04/01/19 17:10 Blood Culture - Preliminary Peripheral Venipuncture Culture is incubating and being continuously monitored for growth. Final report to follow. 04/01/19 17:39 Blood Culture - Preliminary Peripheral Venipuncture Culture is incubating and being continuously monitored for growth. Final report to follow. - Clinical Findings Intake & Output: Intake & Output 04/02/19 04/03/19 04/03/19 23:59 07:59 15:59 Intake Total 290 / 410 Output Total 700 / 700 Balance -410 / -290 Weight 87.7 kg Consult Discharge Plan - Plan Referrals: Kathrin Bowers, MAYRA [Primary Care Provider] - <Marco Ordaz - Last Filed: 04/03/19 12:55> Date of Encounter: 04/03/19 Objective PUL Vital signs: Last Vital Signs Temp 97.8 F 04/03/19 11:47 Pulse 104 04/03/19 11:47 Resp 18 04/03/19 11:47 BP 128/88 04/03/19 11:47 Pulse Ox 94 04/03/19 11:47 Results - Laboratory Findings CBC and BMP: 04/03/19 03:37 04/03/19 03:37 ABG ABG pH 7.27 pH Units (7.32-7.45) L 04/01/19 15:28 ABG pCO2 78 mmHg (35-45) H* 04/01/19 15:28 ABG pO2 80 mmHg (85-104) L 04/01/19 15:28 ABG O2 Saturation 93 % (95-98) L 04/01/19 15:28 Abnormal lab findings: Abnormal lab results WBC 11.8 K/mcL (4.3-11.1) H 04/01/19 20:35 RBC 3.46 M/mcL (3.82-4.97) L 04/03/19 03:37 MCV 102.9 fL (83.0-100.0) H 04/03/19 03:37 MCH 33.5 pg (28.0-33.3) H 04/03/19 03:37 MPV 9.1 fL (9.4-12.4) L 04/03/19 03:37 Neutrophils # 9.7 K/mcL (1.6-8.9) H 04/01/19 20:35 Nucleated RBCs/100 WBC 0.5 /100 WBC (0) H 04/01/19 20:35 ABG pH 7.27 pH Units (7.32-7.45) L 04/01/19 15:28 ABG pCO2 78 mmHg (35-45) H* 04/01/19 15:28 ABG pO2 80 mmHg (85-104) L 04/01/19 15:28 ABG HCO3 36 mEq/L (21-27) H 04/01/19 15:28 ABG Total CO2 38 mEq/L (20-26) H 04/01/19 15:28 ABG O2 Saturation 93 % (95-98) L 04/01/19 15:28 ABG Base Excess 6 mEq/L (-2 to 3) H 04/01/19 15:28 Sodium 128 mEq/L (136-145) L 04/03/19 03:37 Chloride 86 mEq/L (98-107) L 04/03/19 03:37 Carbon Dioxide 37 mEq/L (23-29) H 04/03/19 03:37 Creatinine 0.55 mg/dL (0.60-1.20) L 04/03/19 03:37 BUN/Creatinine Ratio 40 (6-26) H 04/03/19 03:37 Glucose 137 mg/dL (70-105) H 04/03/19 03:37 POC Glucose 163 mg/dL (70-99) H 04/01/19 15:22 Calculated Osmolality 271 (280-300) L 04/03/19 03:37 ALT 55 Units/L (7-52) H 04/01/19 20:35 B-Natriuretic Peptide 716 pg/mL (Less than 100) H 04/01/19 20:35 Serum Total Protein 6.2 g/dL (6.4-8.9) L 04/01/19 20:35 - Microbiology Findings Microbiology Findings: Microbiology, Last 48 Hours 04/01/19 17:10 Blood Culture - Preliminary Peripheral Venipuncture Culture is incubating and being continuously monitored for growth. Final report to follow. 04/01/19 17:39 Blood Culture - Preliminary Peripheral Venipuncture Culture is incubating and being continuously monitored for growth. Final report to follow. - Clinical Findings Intake & Output: Intake & Output 04/02/19 04/03/19 04/03/19 23:59 07:59 15:59 Intake Total 290 / 410 Output Total 700 / 700 Balance -410 / -290 Weight 87.7 kg - Attending Attestation I examined this patient and my medical decision-making was reviewed with the Resident Physician. I agree with the documented findings, disposition and treatment plan as described except to the extent set forth below. We independently had [id number] contact with the patient Patient seen and examined at bedside Labs, radiology, chart personally reviewed. Impression/Recs: Decompensated heart failure agree with the BiPAP at night and if needed for work of breathing she will benefit from continued diuresis and management of atrial fibrillation. Recommend formal cardiology consultation. Therapeutic thoracentesis can be considered if her respiratory status worsens/fluid accumulation increases. Pulmonary will sign off they give very much for this consultation Do not hesitate to call me with any questions or concerns Mohit Ordaz [phone]
[2019-04-03] MEDS: Apixaban 5 MG TABLET PO SCH ×2 (10:18→20:59)
[2019-04-03] MEDS: Diltiazem CD (24hr) 180 MG CAPSULE PO SCH (11:50)
--- NOTE | 2019-04-03 14:59 | Internal Med Progress Note ---
Hospitalist Progress Note - Encounter Date of Encounter: 04/03/19 Time of Encounter: 14:51 - Subjective Interval History: Evaluated patient earlier today. She was complaining of some shortness of breath with minimal exertion. She also complained of palpitations later in the day. No chest pain. No fever or chills reported overnight. - Exam Vitals: Temp Pulse Resp BP Pulse Ox 97.8 F 104 18 128/88 94 04/03/19 11:47 04/03/19 11:47 04/03/19 11:47 04/03/19 11:47 04/03/19 11:47 Exam: General: Patient is alert, mild distress, oriented x 3 ENT: Mucous membranes moist Respiratory: Prolonged expiratory phase, diminished breath sounds at both bases. Cardiovascular: Irregularly irregular rhythm with tachycardia. s1 and s2 normal No clicks, rubs, gallops, or murmurs. No pedal edema Abdomen: Abdomen is soft, nontender. Bowel sounds are present Musculoskeletal: Spontaneously moving all extremities Skin: warm, dry, intact. Neuro: Alert oriented x 3 normal cranial nerves, no focal deficits - Assessment and Plan (1) Acute respiratory failure with hypoxia and hypercapnia Current Visit: Yes Status: Acute (2) Atrial fibrillation Current Visit: Yes Status: Acute (3) Acute congestive heart failure Current Visit: Yes Status: Acute (4) History of hypertension Current Visit: No Status: Chronic (5) DVT prophylaxis Current Visit: Yes Status: Acute (6) Change in mental status Current Visit: Yes Status: Acute DVT Prophylaxis: On Eliquis. - Summary of Assessment and Plan Summary of Assessment and Plan: Acute hypoxic/hypercapnic respiratory failure: Improving. ABG done here does show elevated PCO2 but this has improved from her values at [facility]. Patient is presently on 5 L nasal cannula. Continue to use BiPAP as needed. Neurology consult appreciated. Acute decompensated heart failure: Most likely right-sided heart failure. Hold Lasix for now. 2-D echocardiogram shows EF of 50-55% with mild pulmonary hypertension. Right ventricle has grossly reduced function. Will consult cardiology for further evaluation and recommendations. Mild Pulmonary hypertension: Echocardiogram shows mild pulmonary hypertension. Continue O2 supplementation. Bacterial pneumonia: Suspected pneumonia. On broad-spectrum antibiotics. MRSA screen negative. Stop vancomycin. Transition to oral antibiotics. Hyponatremia: Stable. Sodium 128 today. Will hold diuretics today and recheck BMP in morning. Altered mental status/acute encephalopathy: Improving. Patient continues to have some episodes of delirium. We will treat symptomatically. No agitation episodes. MRI of the brain unremarkable. No stroke. Atrial fibrillation with RVR: Uncontrolled heart rate. Change Cardizem to long- acting dose and start at 180 mg daily. Will consult cardiology for further input. On anticoagulation with Eliquis. Moderate risk for complications. - Time Spent with Patient Total time spent is greater than 50% in coordination of care (as documented) at patient's floor/unit and/or counseling patient: Internal Medicine: Result - Labs CBC & Chem 7: 04/03/19 03:37 04/03/19 03:37 Labs: Short CBC 04/03/19 Range/Units 03:37 WBC 8.7 (4.3-11.1) K/mcL Hgb 11.6 (11.5-15.4) g/dL Hct 35.6 (35.3-44.9) % Plt Count 211 (140-400) K/mcL BMP 04/03/19 03:37 Sodium 128 L Potassium 3.8 Chloride 86 L Carbon Dioxide 37 H BUN 22 Creatinine 0.55 L Glucose 137 H Calcium 8.7 - ABG Interpretation ABG results: ABG ABG pH 7.27 pH Units (7.32-7.45) L 04/01/19 15:28 ABG pCO2 78 mmHg (35-45) H* 04/01/19 15:28 ABG pO2 80 mmHg (85-104) L 04/01/19 15:28 ABG O2 Saturation 93 % (95-98) L 04/01/19 15:28 Consult Discharge Plan - Plan Referrals: Kathrin Bowers, DAT[employer] [Primary Care Provider] - (2) Atrial fibrillation Qualifiers: Atrial fibrillation type: persistent Qualified Code(s): I48.1 - Persistent atrial fibrillation (3) Acute congestive heart failure Qualifiers: Heart failure type: unspecified Qualified Code(s): I50.9 - Heart failure, unspecified (6) Change in mental status Qualifiers: Altered mental status type: transient alteration of awareness Qualified Code(s): R40.4 - Transient alteration of awareness
[2019-04-03] MEDS: MOM Conc 10 ML UD.LIQ PO PRN (23:02)
[2019-04-04] MEDS: Ipratropium/Albuterol Neb 3 ML IH SCH ×7 (00:20→23:10)
[2019-04-04 04:37] LABS: Basophils % 0.3 %; Eosinophils % 0.4 %; Hematocrit 34.1 % (35.3-44.9); Hemoglobin 11.2 g/dL (11.5-15.4); Immature Granulocytes % 0.5 % (0-4); Lymphocytes # 1.1 K/mcL (0.6-4.6); Lymphocytes % 10.7 %; Mean Corpuscular HGB Conc 32.8 g/dL (31.6-35.5); Mean Corpuscular Hemoglobin 33.2 pg (28.0-33.3); Mean Corpuscular Volume 101.2 fL (83.0-100.0); Mean Platelet Volume 8.9 fL (9.4-12.4); Monocytes # 1.2 K/mcL (0.0-1.3); Monocytes % 11.5 %; Neutrophils # 8.1 K/mcL (1.6-8.9); Nucleated Red Blood Cells 0.2 /100 WBC (0); Platelet Count 225 K/mcL (140-400); Red Blood Count 3.37 M/mcL (3.82-4.97); Red Cell Distribution Width 13.2 % (11.5-14.5); Segmented Neutrophils % 76.6 %; White Blood Count 10.6 K/mcL (4.3-11.1)
[2019-04-04 04:57] LABS: BUN/Creatinine Ratio 54 (6-26); Blood Urea Nitrogen 22 mg/dL (8-23); Calcium 9.1 mg/dL (8.6-10.3); Carbon Dioxide 37 mEq/L (23-29); Chloride 83 mEq/L (98-107); Glucose 119 mg/dL (70-105); Osmolality,Calculated 262 (280-300); Potassium 4.1 mEq/L (3.5-5.1); Sodium 124 mEq/L (136-145); eGFR For African Americans > 60 (> 60); eGFR For Non-African Americans > 60 (> 60)
[2019-04-04] MEDS: Cefepime HCl 2,000 MG in Water for inj. (sterile) 20 ML IVP SCH ×2 (05:02→17:05)
[2019-04-04] MEDS: Diltiazem CD (24hr) 180 MG CAPSULE PO SCH ×3 (08:24→10:40)
[2019-04-04] MEDS: Apixaban 5 MG TABLET PO SCH ×4 (08:24→23:32)
--- NOTE | 2019-04-04 08:36 | Cardiology Consult Note ---
Date of Encounter: 04/04/19 Time of Encounter: 08:36 Assessment and Plan (1) Atrial fibrillation with RVR Current Visit: Yes Status: Acute 83 y/o Female with PMH of HTN and Osteoarthritis presents with AMS. Pt had ECG showing Atrial Fibrilliation with RVR. Echo 04/01 with EF of 50-55% -Pt was started on Cardizem 180 mg today, but was refusing to take medications. Eventually talked pt into taking her cardizem will monitor for improved rate control -May need dose increase or cardizem drip if rate continues to be elevated -Continue Eliquis therapy. (2) Acute congestive heart failure Current Visit: Yes Status: Acute Qualifiers: Heart failure type: diastolic Qualified Code(s): I50.31 - Acute diastolic (congestive) heart failure (3) Pulmonary hypertension Current Visit: Yes Status: Acute (4) Acute respiratory failure with hypoxia and hypercapnia Current Visit: Yes Status: Acute (5) Change in mental status Current Visit: Yes Status: Acute Qualifiers: Altered mental status type: transient alteration of awareness Qualified Code(s): R40.4 - Transient alteration of awareness (6) History of hypertension Current Visit: No Status: Chronic Discussion w patient/family: The assessment and plan as outlined above was discussed with the patient and/or family members who expressed understanding and agreement. All questions were answered. Thank you for involving us in the care of your patient. Please call with any questions. History of Present Illness Consult date: 04/04/19 Chief complaint: Shortness of breath and generalized weakness History of present illness: Ms. Torres is a 83 year old female with PMH significant for hypertension and osteoarthritis who presented to [facility] for shortness of breath associated with generalized weakness. Patient was found to have sodium [address] abdomen revealed moderate ascites with bilateral pleural effusions. Patient was admitted and started on a Cardizem drip and heparin drip at [facility]. Patient was transferred to [place] for concern of a possible stroke. Initial ECG with Atrial Fibrillation and RVR. CTA chest performed [place] on 04/01 with enlarged main pulmonary artery consistent with pulmonary hypertension, Bilateral pleural effusions, cardiomegaly with atherosclerotic calcifications in coronary circulation. Echo on 04/01 significant for EF of 50-55% and severe tricuspid regurgitation with reduced RV function. Limited history from pt due to mental status. Unsure of baseline. Past Med Surg Social Fam HX - Past Medical History Medical history: arthritis, hypertension Additional medical history: back pain Psychiatric history: no psych history - Past Surgical History Additional surgical history: lipoma removed - Social History Smoking Status: Never smoker - Family History Mother Hx Family Neuromuscular Disorders: Yes (Stroke) Medications and Allergies Metoprolol Tartrate 50 mg PO BID 04/02/19 [History] hydroCHLOROthiazide [Hydrochlorothiazide] 25 mg PO DAILY 04/02/19 [History] Allergy/AdvReac Type Severity Reaction Status Date / Time Penicillins Allergy Vomiting Verified 04/01/19 15:09 ROS unobtainable: due to mental status (Pt is very confused and limitedly responsive to questioning.) All Systems Review: The remainder of the systems were reviewed and are negative Physical Examination Vital Signs, Last 4 Hours Temp Pulse Resp BP Pulse Ox 04/04/19 07:42 18 93 04/04/19 06:44 97.9 F 103 16 126/62 92 General: Conversant, No Apparent Distress HEENT: Atraumatic, Normocephaly, Mucus Membranes Moist Neck: No JVD, Normal carotid pulses Cardiac: Normal S1 and S2, No Murmur Lungs: Normal Breath Sounds, No Wheeze, Rales, Rhonchi Neuro: Alert and responsive (Oriented only to Person) Abdomen: Soft, Non-Tender Skin: No rashes noted on visualized skin Musculoskeletal: No Chest Wall Tenderness Extremities: No Clubbing, No Cyanosis, Normal Pulses (1+ Bilateral Pitting Edema) Results 04/04/19 04:22 04/04/19 04:22 Lab Results 04/04/19 04/04/19 04:22 04:22 WBC 10.6 Hgb 11.2 L Hct 34.1 L Plt Count 225 Sodium 124 L Potassium 4.1 Chloride 83 L Carbon Dioxide 37 H BUN 22 Creatinine 0.41 L Glucose 119 H Calcium 9.1 Consult Discharge Plan - Plan Referrals: Kathrin Bowers CNP [Primary Care Provider] -
--- NOTE | 2019-04-04 11:54 | EEG/EMG/Oth Biometrics Report ---
EEG Procedure Report EEG Procedure: Routine EEG Procedure Note: This is a routine 21 channel digital EEG performed utilizing 10- 20 international electrode placement system. FINDINGS: Patient has a predominant waking background frequency that is average voltage 8 to 10 Hertz alpha activity in the posterior region, normal amplitude symmetrical over the both hemispheres reactive to eyes opening and closing record continued to show alpha activity intermixed with some theta off and on, no abnormal activity recorded, predominantly no evidence of any spike wave discharges or any lateralizing abnormalities, Photic stimulation and hyperventilation did not produce any convulsive response. Intermittent EMG artifacts were noted. Stage II sleep was not achieved. Impression: Normal awake drowsy electroencephalogram. No epileptiform discharges or any other paroxysmal activities noted. ( Please note that normal EEG does not exclude the diagnosis of seizures or epilepsy, clinical correlation is suggested)
--- NOTE | 2019-04-04 13:47 | Internal Med Progress Note ---
Hospitalist Progress Note - Encounter Date of Encounter: 04/04/19 Time of Encounter: 09:15 - Subjective Interval History: Is seen at bedside. Apparently refused the medications in the morning. Is able to comunicate and denies any pain, fever, chills. IS little drowsy but responds to commands. Baseline mental status still not known. No overnight events. Feeling overall Ok. - Exam Vitals: Temp Pulse Resp BP Pulse Ox 97.5 F L 109 20 120/73 91 04/04/19 10:30 04/04/19 10:30 04/04/19 10:30 04/04/19 10:30 04/04/19 10:30 Exam: General: Alert , oriented to self, no physical distress, able to follow commands. HEENT: No thyromegaly, no lymphadenopathy, no discharge. Eyes: No discharge. Respiratory: Normal vesicular breathing, no added sounds, breathing equal in both sides. CVS: Normal heart sounds, no murmurs, no edema. HR rate irregular but rate is normal. Extremities: No peripheral edema, peripheral pulses intact. Lymph nodes: No lymphadenopathy Gastrointestinal: Soft, nontender abdomen, normal abdominal sounds. No distention noted. Genitourinary: No paravertebral tenderness. Neurological: Alert.. No focal deficits. - Assessment and Plan (1) Acute respiratory failure with hypoxia and hypercapnia Current Visit: Yes Status: Acute Assessment and Plan: -Improving -Still on 5L but saturating in 90s. -IS comfortable and does not seem to be in acute distress -Contine to use BiPAP as needed. -Appreciate neurolgoy input (2) Acute congestive heart failure Current Visit: Yes Status: Acute Assessment and Plan: -Echocardiogram with EF 50-55%, mild pulm hypertension, severe tricuspid regurgitation -Seems to be euvolemic on exam -On lasix at home, whcih will be continued -Cardiolgoy on baord. appreciate input (3) Atrial fibrillation Current Visit: Yes Status: Acute Assessment and Plan: -Rate in 90s now -On cardizem 180 mg PO -Cardioloy on boad -Appreciate recmmendations -Continue eliquis (4) History of hypertension Current Visit: No Status: Chronic Assessment and Plan: -BP well controlled -COntonue home meds (5) DVT prophylaxis Current Visit: Yes Status: Acute Assessment and Plan: On eliquis (6) Change in mental status Current Visit: Yes Status: Acute Assessment and Plan: -Etiolgoy unclear -Hyponatremia as a contributing factor cannot be excluded -Baseline mental status not clearly knowsn -Pt was able to follow commmands and was pleasant but was oriented to self only -MRI is negative for any new complaints -EEG was ordered by neuro but no acute changes appreciated -Appreciate recommendation by neurology (7) Hyponatremia Current Visit: Yes Status: Acute Assessment and Plan: -Etiology unclear -Sodium was improving but is again reduced to 124 today -Urine studies showing increased osmolality for urine, ocnerning for SIADH -CT scan of the abdomen last night showed Abnormal hypoattenuation central endometrial canal concerning for endometrial hyperplasia or underlying neoplastic process. -Will order 1200 ml fluid restriction -Order ultrasound of the abdoemn for further evaluaiton - Time Spent with Patient Total time spent is greater than 50% in coordination of care (as documented) at patient's floor/unit and/or counseling patient: Internal Medicine: Result - Labs CBC & Chem 7: 04/04/19 04:22 04/04/19 04:22 Labs: Short CBC 04/04/19 Range/Units 04:22 WBC 10.6 (4.3-11.1) K/mcL Hgb 11.2 L (11.5-15.4) g/dL Hct 34.1 L (35.3-44.9) % Plt Count 225 (140-400) K/mcL Neutrophils # 8.1 (1.6-8.9) K/mcL BMP 04/04/19 04:22 Sodium 124 L Potassium 4.1 Chloride 83 L Carbon Dioxide 37 H BUN 22 Creatinine 0.41 L Glucose 119 H Calcium 9.1 - ABG Interpretation ABG results: ABG ABG pH 7.27 pH Units (7.32-7.45) L 04/01/19 15:28 ABG pCO2 78 mmHg (35-45) H* 04/01/19 15:28 ABG pO2 80 mmHg (85-104) L 04/01/19 15:28 ABG O2 Saturation 93 % (95-98) L 04/01/19 15:28 - Impressions Impressions Abdomen/Pelvis CT 04/03/19 19:46 IMPRESSION: 1. Nonspecific prominent asymmetric elevation right hemidiaphragm may be related to hemidiaphragm paresis or paralysis. 2. Abnormal hypoattenuation central endometrial canal concerning for endometrial hyperplasia or underlying neoplastic process. Ultrasound correlation on a nonemergent basis is recommended. 3. No definite acute abnormality of the bowel, suboptimally evaluated without IV or oral contrast. 4. Bilateral pleural effusion with bibasilar consolidation. Pneumonia is a consideration. 5. Calcific atherosclerotic disease aorta. D/ / Gordon Infante / Gordon Infante Interpreting Provider: Gordon Infante Consult Discharge Plan - Plan Referrals: Kathrin Bowers, MAYRA [Primary Care Provider] - (2) Acute congestive heart failure Qualifiers: Heart failure type: diastolic Qualified Code(s): I50.31 - Acute diastolic (congestive) heart failure (3) Atrial fibrillation Qualifiers: Atrial fibrillation type: persistent Qualified Code(s): I48.1 - Persistent atrial fibrillation (6) Change in mental status Qualifiers: Altered mental status type: transient alteration of awareness Qualified Code(s): R40.4 - Transient alteration of awareness
[2019-04-04] MEDS ORDERED: Bisacodyl 10 MG RECTAL SUPPOSITORY RC PRN (14:54)
[2019-04-04] MEDS: Furosemide 40 MG/4 ML VIAL IVP SCH (16:24)
[2019-04-04 20:20] LABS: Bilirubin,Urine Negative (Negative); Blood,Urine Large (Negative); Clarity,Urine Clear (Clear); Color,Urine Yellow (Yellow); Glucose,Urine (UA) Normal (Normal); Ketones,Urine 15 mg/dL (Negative); Leukocyte Esterase,Urine Moderate (Negative); Nitrite,Urine Negative (Negative); Protein,Urine Trace mg/dL (Neg-Trace); Specific Gravity,Urine 1.011 (1.010-1.025); Urobilinogen,Urine Normal (Normal)
[2019-04-04 20:21] LABS: Bacteria,Urine None Seen per hpf (None-Few); Hyaline Casts,Urine None Seen per lpf (None-Few); Squamous Epithelial Cell,Urine Many per lpf (None-Few)
[2019-04-05] MEDS: Ipratropium/Albuterol Neb 3 ML IH SCH ×5 (04:05→20:14)
[2019-04-05 05:15] LABS: Basophils # 0.1 K/mcL (0.0-0.2); Basophils % 0.5 %; Eosinophils # 0.1 K/mcL (0.0-0.6); Eosinophils % 0.7 %; Hematocrit 36.4 % (35.3-44.9); Hemoglobin 11.7 g/dL (11.5-15.4); Immature Granulocytes % 0.6 % (0-4); Lymphocytes # 1.1 K/mcL (0.6-4.6); Lymphocytes % 10.1 %; Mean Corpuscular HGB Conc 32.1 g/dL (31.6-35.5); Mean Corpuscular Hemoglobin 33.7 pg (28.0-33.3); Mean Corpuscular Volume 104.9 fL (83.0-100.0); Mean Platelet Volume 9.1 fL (9.4-12.4); Monocytes # 1.4 K/mcL (0.0-1.3); Monocytes % 13.2 %; Neutrophils # 8.1 K/mcL (1.6-8.9); Nucleated Red Blood Cells 0.2 /100 WBC (0); Platelet Count 233 K/mcL (140-400); Red Blood Count 3.47 M/mcL (3.82-4.97); Red Cell Distribution Width 13.8 % (11.5-14.5); Segmented Neutrophils % 74.9 %; White Blood Count 10.8 K/mcL (4.3-11.1)
[2019-04-05 05:34] LABS: BUN/Creatinine Ratio 36 (6-26); Blood Urea Nitrogen 13 mg/dL (8-23); Calcium 8.4 mg/dL (8.6-10.3); Carbon Dioxide 35 mEq/L (23-29); Chloride 88 mEq/L (98-107); Glucose 117 mg/dL (70-105); Osmolality,Calculated 267 (280-300); Potassium 4.1 mEq/L (3.5-5.1); Sodium 128 mEq/L (136-145); eGFR For African Americans > 60 (> 60); eGFR For Non-African Americans > 60 (> 60)
[2019-04-05] MEDS: Cefepime HCl 2,000 MG in Water for inj. (sterile) 20 ML IVP SCH (06:13)
[2019-04-05] MEDS ORDERED: Milk and Molasses Enema 200 ML RC ONE (08:00)
[2019-04-05] MEDS: Apixaban 5 MG TABLET PO SCH ×2 (10:11→21:44)
[2019-04-05] MEDS: Diltiazem CD (24hr) 240 MG CAPSULE PO SCH (10:11)
--- NOTE | 2019-04-05 10:14 | Cardiology Progress Note ---
Date of Encounter: 04/05/19 Time of Encounter: 10:08 Assessment and Plan (1) Atrial fibrillation Current Visit: Yes Status: Acute Atrial fibrillation, RVR. Patient is confused, refuses to take oral medications. Discussed with nursing. If patient continues to decline medications orally, we will start a Cardizem drip. Currently on Eliquis for AC. Hemoglobin stable. No obvious issues. Continue anticoagulation. LVEF preserved. Qualifiers: Atrial fibrillation type: persistent Qualified Code(s): I48.1 - Persistent atrial fibrillation Discussion w patient/family: The assessment and plan as outlined above was discussed with the patient and/or family members who expressed understanding and agreement. All questions were answered. Thank you for involving us in the care of your patient. Please call with any questions. Subjective Principal diagnosis: Altered mental state Interval history: Maida remains confused this morning. Family is present at bedside, trying to convince patient to take medications. Atrial fibrillation with RVR remains. Objective Vital Signs, Last 4 Hours Temp Pulse Resp BP Pulse Ox 04/05/19 08:07 16 90 04/05/19 06:42 97.2 F L 107 16 130/81 90 General: No Apparent Distress (Confused), Other HEENT: Atraumatic, Normocephaly, Mucus Membranes Moist Neck: No JVD, Normal carotid pulses Cardiac: Other (Irregular rate and rhythm. Difficult to appreciate murmurs.) Lungs: Other (Shallow breath sounds, poor effort.) Neuro: No focal deficits noted Abdomen: Soft, Non-Tender Skin: No rashes noted on visualized skin Musculoskeletal: No Chest Wall Tenderness Extremities: No Clubbing, No Cyanosis Results 04/05/19 04:50 04/05/19 04:50 Lab Results 04/05/19 04/05/19 04:50 04:50 WBC 10.8 Hgb 11.7 Hct 36.4 Plt Count 233 Sodium 128 L Potassium 4.1 Chloride 88 L Carbon Dioxide 35 H BUN 13 Creatinine 0.36 L Glucose 117 H Calcium 8.4 L - Imaging and Cardiology Echo: report reviewed - EKG Interpretation EKG results cardiology: personally reviewed Consult Discharge Plan - Plan Referrals: Kathrin Bowers, [employer] BL[employer]ITCH [Primary Care Provider] -
--- NOTE | 2019-04-05 13:53 | Internal Med Progress Note ---
Hospitalist Progress Note - Encounter Date of Encounter: 04/05/19 Time of Encounter: 11:15 - Subjective Interval History: Patient is disoriented and also appears to be hallucinating. According to nursing staff, she received Restoril last night and was able to sleep well. She has become more disoriented this morning. [facility] - Exam Vitals: Temp Pulse Resp BP Pulse Ox 97.8 F 109 16 133/79 90 04/05/19 11:24 04/05/19 11:24 04/05/19 11:52 04/05/19 11:24 04/05/19 11:52 Exam: General: Patient is disoriented, hallucinating. ENT: Mucous membranes moist Respiratory: Diminished breath sounds at both bases. Cardiovascular: Irregularly irregular rhythm with tachycardia s1 and s2 normal No clicks, rubs, gallops, or murmurs. No pedal edema Abdomen: Abdomen is soft, nontender. Bowel sounds are present Musculoskeletal: Spontaneously moving all extremities Skin: warm, dry, intact. Neuro: disoriented, hallucinating. - Assessment and Plan (1) Atrial fibrillation Current Visit: Yes Status: Acute (2) Acute congestive heart failure Current Visit: Yes Status: Acute (3) Acute respiratory failure with hypoxia and hypercapnia Current Visit: Yes Status: Acute (4) History of hypertension Current Visit: No Status: Chronic (5) DVT prophylaxis Current Visit: Yes Status: Acute (6) Change in mental status Current Visit: Yes Status: Acute (7) Hyponatremia Current Visit: Yes Status: Acute DVT Prophylaxis: On Eliquis - Summary of Assessment and Plan Summary of Assessment and Plan: Acute encephalopathy: Most likely delirium related to sundowning and prolonged hospital stay with underlying acute illnesses. Will place patient on bedtime dose of risperidone. Acute hypoxic/hypercapnic respiratory failure: Patient currently on 5 L O2 supplementation with nasal cannula. We will repeat chest x-ray tomorrow. Acute on chronic diastolic heart failure: Concern for right-sided/diastolic heart failure. Does not appear to be volume overloaded at this time. 2-D echocardiogram shows EF of 50-55% with mild pulmonary hypertension. Right ventricle has grossly reduced function. Mild Pulmonary hypertension: Mild pulmonary hypertension per echocardiogram. Bacterial pneumonia: Cultures are negative. DC cefepime. Will place patient on Omnicef. Hyponatremia: Stable. Concern for underlying SIADH. Sodium 128 again today. Continue with fluid restriction. Will add salt tablets also for now. Atrial fibrillation with RVR: Uncontrolled heart rate. Increased Cardizem to 240 mg grams per day. Cardiology following. His heart rate remains uncontrolled, she may need to be started on Cardizem drip. On anticoagulation with Eliquis. Moderate risk for complications. - Time Spent with Patient Total time spent is greater than 50% in coordination of care (as documented) at patient's floor/unit and/or counseling patient: Internal Medicine: Result - Labs CBC & Chem 7: 04/05/19 04:50 04/05/19 04:50 Labs: Short CBC 04/05/19 Range/Units 04:50 WBC 10.8 (4.3-11.1) K/mcL Hgb 11.7 (11.5-15.4) g/dL Hct 36.4 (35.3-44.9) % Plt Count 233 (140-400) K/mcL Neutrophils # 8.1 (1.6-8.9) K/mcL BMP 04/05/19 04:50 Sodium 128 L Potassium 4.1 Chloride 88 L Carbon Dioxide 35 H BUN 13 Creatinine 0.36 L Glucose 117 H Calcium 8.4 L Urine 04/04/19 Range/Units 19:52 Urine Color Yellow (Yellow) Urine Clarity Clear (Clear) Urine pH 7.0 (5.0-8.0) pH Units Ur Specific [place] 1.011 (1.010-1.025) Urine Protein Trace (Neg-Trace) mg/dL Urine Glucose (UA) Normal (Normal) mg/dL - ABG Interpretation ABG results: ABG ABG pH 7.27 pH Units (7.32-7.45) L 04/01/19 15:28 ABG pCO2 78 mmHg (35-45) H* 04/01/19 15:28 ABG pO2 80 mmHg (85-104) L 04/01/19 15:28 ABG O2 Saturation 93 % (95-98) L 04/01/19 15:28 - Impressions Impressions Brain MRI 04/02/19 16:24 IMPRESSION: No acute intracranial abnormality. Mild chronic microvascular ischemic disease. D/ / 04/02/2019 14:06:51 Sayra Simmons MD / paolo Interpreting Provider: Sayra Simmons MD Consult Discharge Plan - Plan Referrals: Kathrin Bowers CNP [Primary Care Provider] - (1) Atrial fibrillation Qualifiers: Atrial fibrillation type: persistent Qualified Code(s): I48.1 - Persistent atrial fibrillation (2) Acute congestive heart failure Qualifiers: Heart failure type: diastolic Qualified Code(s): I50.31 - Acute diastolic (congestive) heart failure (6) Change in mental status Qualifiers: Altered mental status type: delirium Qualified Code(s): R41.0 - Disorientation, unspecified
[2019-04-05] MEDS ORDERED: risperiDONE 0.25 MG TABLET PO SCH (21:00)
[2019-04-05] MEDS: Cefdinir 300 MG CAPSULE PO SCH (21:44)
[2019-04-05] MEDS: Doxycycline 100 MG CAPSULE PO SCH (21:44)
[2019-04-06] MEDS: Ipratropium/Albuterol Neb 3 ML IH SCH ×7 (00:13→23:36)
[2019-04-06 04:34] LABS: Basophils % 0.3 %; Eosinophils # 0.1 K/mcL (0.0-0.6); Hematocrit 35.6 % (35.3-44.9); Hemoglobin 11.4 g/dL (11.5-15.4); Immature Granulocytes % 0.9 % (0-4); Lymphocytes # 0.8 K/mcL (0.6-4.6); Lymphocytes % 9.3 %; Mean Corpuscular Hemoglobin 33.3 pg (28.0-33.3); Mean Corpuscular Volume 104.1 fL (83.0-100.0); Mean Platelet Volume 8.9 fL (9.4-12.4); Monocytes # 1.1 K/mcL (0.0-1.3); Monocytes % 11.9 %; Neutrophils # 6.9 K/mcL (1.6-8.9); Platelet Count 198 K/mcL (140-400); Red Blood Count 3.42 M/mcL (3.82-4.97); Red Cell Distribution Width 13.9 % (11.5-14.5); Segmented Neutrophils % 76.6 %
[2019-04-06 04:55] LABS: BUN/Creatinine Ratio 31 (6-26); Blood Urea Nitrogen 13 mg/dL (8-23); Calcium 8.8 mg/dL (8.6-10.3); Carbon Dioxide 41 mEq/L (23-29); Chloride 88 mEq/L (98-107); Glucose 135 mg/dL (70-105); Osmolality,Calculated 266 (280-300); Potassium 4.5 mEq/L (3.5-5.1); Sodium 127 mEq/L (136-145); eGFR For African Americans > 60 (> 60); eGFR For Non-African Americans > 60 (> 60)
--- NOTE | 2019-04-06 06:46 | Pulmonology Progress Note ---
Date of Encounter: 04/06/19 Time of Encounter: 06:46 Subjective Principal diagnosis: Altered mental state Objective PUL Vital signs: Last Vital Signs Temp 98.5 F 04/06/19 03:01 Pulse 99 04/06/19 03:01 Resp 18 04/06/19 04:07 BP 111/74 04/06/19 04:07 Pulse Ox 99 04/06/19 04:07 Results - Laboratory Findings CBC and BMP: 04/06/19 04:00 04/06/19 04:00 ABG ABG pH 7.27 pH Units (7.32-7.45) L 04/01/19 15:28 ABG pCO2 78 mmHg (35-45) H* 04/01/19 15:28 ABG pO2 80 mmHg (85-104) L 04/01/19 15:28 ABG O2 Saturation 93 % (95-98) L 04/01/19 15:28 Abnormal lab findings: Abnormal lab results WBC 11.8 K/mcL (4.3-11.1) H 04/01/19 20:35 RBC 3.42 M/mcL (3.82-4.97) L 04/06/19 04:00 Hgb 11.4 g/dL (11.5-15.4) L 04/06/19 04:00 Hct 34.1 % (35.3-44.9) L 04/04/19 04:22 MCV 104.1 fL (83.0-100.0) H 04/06/19 04:00 MCH 33.7 pg (28.0-33.3) H 04/05/19 04:50 MPV 8.9 fL (9.4-12.4) L 04/06/19 04:00 Neutrophils # 9.7 K/mcL (1.6-8.9) H 04/01/19 20:35 Monocytes # 1.4 K/mcL (0.0-1.3) H 04/05/19 04:50 Nucleated RBCs/100 WBC 0.2 /100 WBC (0) H 04/05/19 04:50 ABG pH 7.27 pH Units (7.32-7.45) L 04/01/19 15:28 ABG pCO2 78 mmHg (35-45) H* 04/01/19 15:28 ABG pO2 80 mmHg (85-104) L 04/01/19 15:28 ABG HCO3 36 mEq/L (21-27) H 04/01/19 15:28 ABG Total CO2 38 mEq/L (20-26) H 04/01/19 15:28 ABG O2 Saturation 93 % (95-98) L 04/01/19 15:28 ABG Base Excess 6 mEq/L (-2 to 3) H 04/01/19 15:28 Sodium 127 mEq/L (136-145) L 04/06/19 04:00 Chloride 88 mEq/L (98-107) L 04/06/19 04:00 Carbon Dioxide 41 mEq/L (23-29) H* 04/06/19 04:00 Creatinine 0.42 mg/dL (0.60-1.20) L 04/06/19 04:00 BUN/Creatinine Ratio 31 (6-26) H 04/06/19 04:00 Glucose 135 mg/dL (70-105) H 04/06/19 04:00 POC Glucose 163 mg/dL (70-99) H 04/01/19 15:22 Calculated Osmolality 266 (280-300) L 04/06/19 04:00 Calcium 8.4 mg/dL (8.6-10.3) L 04/05/19 04:50 ALT 55 Units/L (7-52) H 04/01/19 20:35 B-Natriuretic Peptide 716 pg/mL (Less than 100) H 04/01/19 20:35 Serum Total Protein 6.2 g/dL (6.4-8.9) L 04/01/19 20:35 Urine Ketones 15 mg/dL (Negative) H 04/04/19 19:52 Urine Blood Large (Negative) H 04/04/19 19:52 Ur Leukocyte Esterase Moderate (Negative) H 04/04/19 19:52 Urine Microscopic RBC 5-15 per hpf (0-3) H 04/04/19 19:52 Urine Microscopic WBC 5-15 per hpf (0-3) H 04/04/19 19:52 Ur Squamous Epith Cells Many per lpf (None-Few) H 04/04/19 19:52 Ur Culture Indicated? YES (NO) A 04/04/19 19:52 - Microbiology Findings Microbiology Findings: Microbiology, Last 48 Hours 04/04/19 20:00 Urine Culture - Preliminary Urine,[place] Culture is incubating. - Clinical Findings Intake & Output: Intake & Output 04/05/19 04/05/19 04/06/19 15:59 23:59 07:59 Intake Total 0 / 60 60 / 60 Output Total 150 / 750 1000 / 1000 Balance -150 / -690 60 / -690 -1000 / -1000 Weight 88.1 kg Consult Discharge Plan - Plan Referrals: Kathrin Bowers, MACHINERY MECHANIC [Primary Care Provider] -
[2019-04-06] MEDS: Diltiazem CD (24hr) 240 MG CAPSULE PO SCH (09:39)
[2019-04-06] MEDS: Doxycycline 100 MG CAPSULE PO SCH ×2 (09:44→21:29)
[2019-04-06] MEDS: Cefdinir 300 MG CAPSULE PO SCH ×2 (09:44→21:28)
[2019-04-06] MEDS: Apixaban 5 MG TABLET PO SCH ×2 (09:44→21:28)
--- NOTE | 2019-04-06 10:34 | Cardiology Progress Note ---
Date of Encounter: 04/06/19 Time of Encounter: 10:30 Assessment and Plan (1) Change in mental status Current Visit: Yes Status: Acute Per Cardiology: Neurology following. Qualifiers: Altered mental status type: delirium Qualified Code(s): R41.0 - Disorientation, unspecified (2) Acute respiratory failure with hypoxia and hypercapnia Current Visit: Yes Status: Acute Per Cardiology: Bilateral pleural effusions. Pulmonology following. Net I&O -3730ml. (3) Atrial fibrillation Current Visit: Yes Status: Acute Per Cardiology: Apparent new onset atrial fibrillation. Currently A. fib in the 110s with average heart rate past 12 hours 111. On Cardizem CD 240 mg by mouth daily. Systolic blood pressure in the 110s. We will add Lopressor 12.5 mg's by mouth twice a day and titrate as blood pressure allows. ECHO: Impressions: LVEF 50-55%. Normal LV chamber size, wall thickness and function. Indeterminate diastolic function. Atypical septal motion consistent with bundle branch block. Right ventricle was not well visualized. Grossly, it is mildly reduced in function. Severe tricuspid regurgitation. Mild pulmonary hypertension. Left Ventricular Wall Motion: Rest Echo Findings All wall segments showed normal motion. Currently on Eliquis for AC. Qualifiers: Atrial fibrillation type: unspecified Qualified Code(s): I48.91 - Unspecified atrial fibrillation Discussion w patient/family: The assessment and plan as outlined above was discussed with the patient and/or family members who expressed understanding and agreement. All questions were answered. Thank you for involving us in the care of your patient. Please call with any questions. Subjective Principal diagnosis: Altered mental state, afib Interval history: Patient seen with manjit the bedside. History difficult to obtain. Patient pleasant and cooperative, however confused. Patient aware that she as at [facility] and in the [facility]. Aware to name. Did not know year. Does not answer questions appropriately. Appears to be chest pain-free. Denies any palpitations or short of breath. Grandson reports MS changes are new for patient from her baseline. Objective Vital Signs, Last 4 Hours Resp BP Pulse Ox 04/06/19 08:04 30 111/74 99 General: Conversant, No Apparent Distress HEENT: Atraumatic, Normocephaly, Mucus Membranes Moist Neck: No JVD, Normal carotid pulses Cardiac: No Murmur, Other (Irregularly irregular) Lungs: Other (Mild conversational dyspnea noted, diminished breath sounds throughout) Neuro: Alert and responsive, No focal deficits noted, Other (Alert to person.) Abdomen: Soft, Non-Tender Skin: No rashes noted on visualized skin Musculoskeletal: No Chest Wall Tenderness Extremities: No Clubbing, No Cyanosis, Normal Pulses, Other (+1-2 nonpitting bilateral lower shot many edema) Results 04/06/19 04:00 04/06/19 04:00 Lab Results Laboratory Tests 04/02/19 04/06/19 04/06/19 05:10 04:00 04:00 Hct 35.6 Creatinine 0.42 L Est GFR (Non-Af Amer) > 60 TSH 0.923 ITS Impressions Echocardiogram 04/01/19 16:14 Impressions: LVEF 50-55%. Normal LV chamber size, wall thickness and function. Indeterminate diastolic function. Atypical septal motion consistent with bundle branch block. Right ventricle was not well visualized. Grossly, it is mildly reduced in function. Severe tricuspid regurgitation. Mild pulmonary hypertension. Left Ventricular Wall Motion: Rest Echo Findings All wall segments showed normal motion. Findings: Study Quality * Technically sub-optimal due to clinical status and poor windows. ECG Findings * Atrial fibrillation, PVCs. Left Ventricle * LVEF 50-55%. * Normal LV chamber size, wall thickness and function. * Indeterminate diastolic function. * Atypical septal motion consistent with bundle branch block. Right Ventricle * Right ventricle was not well visualized. Grossly, it is mildly reduced in function. Left Atrium * Severely dilated left atrium. Right Atrium * Severely dilated right atrium. Interatrial Septum * Interatrial septum not well evaluated. Aortic Valve * Trileaflet aortic valve. * Trace aortic regurgitation. * No aortic stenosis. Mitral Valve * Normal mitral valve structure. * Trace mitral regurgitation. * No mitral stenosis. Tricuspid Valve * Normal tricuspid valve structure. * Severe tricuspid regurgitation. * Mild pulmonary hypertension. Pulmonic Valve * Pulmonic valve not well visualized. * No pulmonic regurgitation. Aorta * Normally sized aortic root. Pericardium * The pericardium appears normal. Pulmonary Artery * Pulmonary artery not well visualized. IVC * The IVC is not well evaluated. Chest CTA 04/01/19 16:17 IMPRESSION: 1. No evidence of pulmonary embolic disease. Enlarged main pulmonary artery consistent with pulmonary hypertension. 2. Bilateral pleural effusions, right greater than left. Complete right lower lobe atelectasis with dependent left lower lobe and right upper lobe atelectasis. 3. Cardiomegaly with atherosclerotic calcification in the coronary circulation. Elevated right heart pressures with reflux opacification of the hepatic veins and IVC. 4. Cholelithiasis. Small quantity of upper abdominal ascites. D/ / 04/01/2019 19:05:07 Mahendra Shah MD / paolo Interpreting Provider: Mahendra Shah MD Brain MRI 04/02/19 16:24 IMPRESSION: No acute intracranial abnormality. Mild chronic microvascular ischemic disease. D/ / 04/02/2019 14:06:51 Sayra Simmons MD / paolo Interpreting Provider: Sayra Simmons MD Abdomen/Pelvis CT 04/03/19 19:46 IMPRESSION: 1. Nonspecific prominent asymmetric elevation right hemidiaphragm may be related to hemidiaphragm paresis or paralysis. 2. Abnormal hypoattenuation central endometrial canal concerning for endometrial hyperplasia or underlying neoplastic process. Ultrasound correlation on a nonemergent basis is recommended. 3. No definite acute abnormality of the bowel, suboptimally evaluated without IV or oral contrast. 4. Bilateral pleural effusion with bibasilar consolidation. Pneumonia is a consideration. 5. Calcific atherosclerotic disease aorta. D/ / Gordon Infante / Gordon Infante Interpreting Provider: Gordon Infante Chest X-Ray 04/06/19 07:00 IMPRESSION: Persistent small bilateral pleural effusions. Left basilar airspace opacity is unchanged. D/ / 04/06/2019 08:42:15 Ines Simmons MD / ozzy Interpreting Provider: Ines Simmons MD Active Medications Acetaminophen (Tylenol) 650 mg PO Q6HR PRN PRN Reason: Mild Pain/Fever Stop: 10/01/19 15:41 Al Hydrox/Mg Hydrox/Simethicone (Maalox) 15 ml PO Q6HR PRN PRN Reason: Dyspepsia Stop: 10/01/19 15:41 Albuterol/Ipratropium (Duoneb) 3 ml IH [id number] [facility] Stop: 10/01/19 20:01 Last Admin: 04/06/19 08:04 Dose: 3 ml Documented by: Albuterol/Ipratropium (Duoneb) 3 ml IH [id number] PRN PRN Reason: Shortness Of Breath/Wheezing Stop: 10/01/19 16:19 Apixaban (Eliquis) 5 mg PO BID [facility]; Protocol Stop: 10/02/19 21:01 Last Admin: 04/06/19 09:44 Dose: 5 mg Documented by: Bisacodyl (Dulcolax) 10 mg RC DAILY PRN PRN Reason: Constipation Stop: 10/04/19 14:55 Last Admin: 04/04/19 17:17 Dose: 10 mg Documented by: Cefdinir (Omnicef) 300 mg PO BID [facility]; Protocol Stop: 10/05/19 21:01 Last Admin: 04/06/19 09:44 Dose: 300 mg Documented by: Diltiazem HCl (Cardizem Cd) 240 mg PO DAILY [facility] Stop: 10/05/19 09:01 Last Admin: 04/06/19 09:39 Dose: 240 mg Documented by: Doxycycline Hyclate (Doxycycline) 100 mg PO BID [facility] Stop: 10/05/19 21:01 Last Admin: 04/06/19 09:44 Dose: 100 mg Documented by: Magnesium Hydroxide (Milk Of Magnesia Conc) 10 ml PO DAILY PRN PRN Reason: Constipation Stop: 10/01/19 15:41 Last Admin: 04/03/19 23:02 Dose: 10 ml Documented by: Naloxone HCl (Narcan) 0.4 mg IVP Q2MPRN PRN PRN Reason: SEE COMMENTS Stop: 10/01/19 15:41 Ondansetron HCl (Zofran) 4 mg IVP Q8HR PRN PRN Reason: Nausea And Vomiting Stop: 10/01/19 15:41 Last Admin: 04/02/19 16:37 Dose: 4 mg Documented by: Polyethylene Glycol (Miralax) 17 gm PO BID PRN PRN Reason: Constipation Stop: 10/03/19 21:20 Last Admin: 04/04/19 06:44 Dose: 17 gm Documented by: Promethazine HCl (Phenergan) 12.5 mg IVP Q6HR PRN PRN Reason: Nausea And Vomiting Stop: 10/01/19 15:41 Risperidone (Risperdal) 0.5 mg PO HS VINAYAK Stop: 10/05/19 21:01 Last Admin: 04/05/19 21:45 Dose: 0.5 mg Documented by: Sodium Chloride (Sodium Chloride) 1 gm PO BID VINAYAK Stop: 10/05/19 13:55 Last Admin: 04/06/19 09:44 Dose: 1 gm Documented by: Tramadol HCl (Ultram) 50 mg PO Q6HR PRN PRN Reason: Moderate Pain Stop: 10/01/19 15:41 Last Admin: 04/04/19 01:00 Dose: 50 mg Documented by: - Imaging and Cardiology Echo: report reviewed Consult Discharge Plan - Plan Referrals: Kathrin Bowers, ELECTRICAL TIMING DEVICE CALIBRATOR [Primary Care Provider] -
[2019-04-06] MEDS: MOM Conc 10 ML UD.LIQ PO PRN (12:30)
[2019-04-06 13:19] LABS: ABG Base Excess 12 mEq/L (-2 to 3); ABG HCO3 41 mEq/L (21-27); ABG Oxygen Saturation 85 % (95-98); ABG PCO2 73 mmHg (35-45); ABG PH 7.36 pH Units (7.32-7.45); ABG PO2 54 mmHg (85-104); ABG TCO2 43 mEq/L (20-26)
--- NOTE | 2019-04-06 16:14 | Internal Med Progress Note ---
Hospitalist Progress Note - Encounter Date of Encounter: 04/06/19 Time of Encounter: 11:05 - Subjective Interval History: Patient was seen this a.m. She looks confused and she keep talking to herself. - Exam Vitals: Temp Pulse Resp BP Pulse Ox 97.6 F 93 18 118/79 97 04/06/19 15:28 04/06/19 15:28 04/06/19 15:28 04/06/19 15:28 04/06/19 15:28 Exam: General: Patient is disoriented, hallucinating. ENT: Mucous membranes moist Respiratory: Diminished breath sounds at both bases. Cardiovascular: Irregularly irregular rhythm with tachycardia s1 and s2 normal No clicks, rubs, gallops, or murmurs. No pedal edema Abdomen: Abdomen is soft, nontender. Bowel sounds are present Musculoskeletal: Spontaneously moving all extremities Skin: warm, dry, intact. Neuro: disoriented, hallucinating. - Assessment and Plan (1) Atrial fibrillation Current Visit: Yes Status: Acute (2) Acute congestive heart failure Current Visit: Yes Status: Acute (3) Acute respiratory failure with hypoxia and hypercapnia Current Visit: Yes Status: Acute (4) History of hypertension Current Visit: No Status: Chronic (5) DVT prophylaxis Current Visit: Yes Status: Acute (6) Change in mental status Current Visit: Yes Status: Acute (7) Hyponatremia Current Visit: Yes Status: Acute - Summary of Assessment and Plan Summary of Assessment and Plan: Acute encephalopathy: - Most likely delirium related to sundowning and prolonged hospital stay with underlying acute illnesses. - ABG 7.36/73/41, We will use BiPAP as needed, treat hyponatremia as those could be contributing to her delirium - MRI of the brain at presentation was negative for acute stroke. EEG is normal - Spoke to the family, frequent reorientation. - Check ammonia level tomorrow Acute hypoxic/hypercapnic respiratory failure: - CTA at presentation was negative for PE however it did reveal bilateral pleural effusion, R>L, with bilateral atelectasis. Upper abdominal ascites. CXR / persistent small bilateral pleural effusion with left basilar air space opacity which is unchanged. - Patient currently on 5 L O2 supplementation with nasal cannula. We will repeat chest x-ray tomorrow. - Suspect due to pneumonia, on oral cefdinir and doxycycline Macroyctic anemia: - check fOLIC ACID and B12 levels. Acute on chronic diastolic heart failure: - Concern for right-sided/diastolic heart failure. i/o is -4 L Does not appear to be volume overloaded at this time. 2-D echocardiogram shows EF of 50-55% with mild pulmonary hypertension. Right ventricle has grossly reduced function. Mild Pulmonary hypertension: -Mild pulmonary hypertension per echocardiogram. Hyponatremia: -Stable. Cortisol level and TSH is normal. low urine NA but high osmolarity which correlate with dehydration like picture vs ? SIADH. Sodium 127 again today. Continue with fluid restriction. Will add salt tablets also for now. -cHECK bmP TOMORROW. Atrial fibrillation with RVR: - controlled heart rate with Cardizem 240 mg grams per day and lopressor. On anticoagulation with Eliquis. Endometrial lesion: - Ct abdomen revealed abnormal hypoattenuation in the centrum endometria, conc erning for hyperplasia or neoplastic process. Recommendation for outpatient pelvic ultrasound if family/patient wishes to proceed. DVT ppx: Eliquis. - Time Spent with Patient Total time spent is greater than 50% in coordination of care (as documented) at patient's floor/unit and/or counseling patient: Plan of Care Discussed with: family Internal Medicine: Result - Labs CBC & Chem 7: 04/06/19 04:00 04/06/19 04:00 Labs: Short CBC 04/06/19 Range/Units 04:00 WBC 9.0 (4.3-11.1) K/mcL Hgb 11.4 L (11.5-15.4) g/dL Hct 35.6 (35.3-44.9) % Plt Count 198 (140-400) K/mcL Neutrophils # 6.9 (1.6-8.9) K/mcL BMP 04/06/19 04:00 Sodium 127 L Potassium 4.5 Chloride 88 L Carbon Dioxide 41 H* BUN 13 Creatinine 0.42 L Glucose 135 H Calcium 8.8 - ABG Interpretation ABG results: ABG ABG pH 7.36 pH Units (7.32-7.45) 04/06/19 13:15 ABG pCO2 73 mmHg (35-45) H* 04/06/19 13:15 ABG pO2 54 mmHg (85-104) L 04/06/19 13:15 ABG O2 Saturation 85 % (95-98) L 04/06/19 13:15 - Impressions Impressions Chest X-Ray 04/06/19 07:00 IMPRESSION: Persistent small bilateral pleural effusions. Left basilar airspace opacity is unchanged. D/ 04/06/2019 08:42:15 Ines Simmons MD / ozzy Interpreting Provider: Ines Simmons MD Consult Discharge Plan - Plan Referrals: Kathrin Bowers, HEAD SUGAR REPROCESS OPERATOR [Primary Care Provider] - (1) Atrial fibrillation Qualifiers: Atrial fibrillation type: unspecified Qualified Code(s): I48.91 - Unspecified atrial fibrillation (2) Acute congestive heart failure Qualifiers: Heart failure type: diastolic Qualified Code(s): I50.31 - Acute diastolic (congestive) heart failure (6) Change in mental status Qualifiers: Altered mental status type: delirium Qualified Code(s): R41.0 - Disorient ation, unspecified
[2019-04-07] MEDS: Ipratropium/Albuterol Neb 3 ML IH SCH ×5 (03:58→20:10)
[2019-04-07 04:50] LABS: Hematocrit 37.1 % (35.3-44.9); Hemoglobin 11.7 g/dL (11.5-15.4); Mean Corpuscular HGB Conc 31.5 g/dL (31.6-35.5); Mean Corpuscular Hemoglobin 33.1 pg (28.0-33.3); Mean Corpuscular Volume 104.8 fL (83.0-100.0); Mean Platelet Volume 8.9 fL (9.4-12.4); Platelet Count 244 K/mcL (140-400); Red Blood Count 3.54 M/mcL (3.82-4.97); White Blood Count 9.9 K/mcL (4.3-11.1)
[2019-04-07 04:55] LABS: VBG HCO3 42 mEq/L (21-27); VBG PCO2 67 mmHg (41-51); VBG PH 7.41 pH Units (7.32-7.42); VBG PO2 77 mmHg (25-50)
[2019-04-07 05:20] LABS: Alanine Aminotransferase 24 Units/L (7-52); Albumin 3.6 g/dL (3.5-5.7); Albumin/Globulin Ratio 1.5 (1.1-2.2); Alkaline Phosphatase 56 Units/L (34-104); Aspartate Amino Transferase 16 Units/L (13-39); BUN/Creatinine Ratio 50 (6-26); Bilirubin,Total 0.8 mg/dL (0.3-1.0); Blood Urea Nitrogen 23 mg/dL (8-23); Calcium 9.4 mg/dL (8.6-10.3); Carbon Dioxide 38 mEq/L (23-29); Chloride 89 mEq/L (98-107); Globulin 2.4 g/dL (2.4-3.5); Glucose 122 mg/dL (70-105); Osmolality,Calculated 275 (280-300); Potassium 5.2 mEq/L (3.5-5.1); Sodium 130 mEq/L (136-145); eGFR For African Americans > 60 (> 60); eGFR For Non-African Americans > 60 (> 60)
[2019-04-07 07:06] LABS: Folate 20.9 ng/mL (3.0-16.0)
--- NOTE | 2019-04-07 08:47 | Cardiology Progress Note ---
<Mahendra Ferrara N - Last Filed: 04/07/19 10:54> Date of Encounter: 04/07/19 Time of Encounter: 08:47 Assessment and Plan (1) Atrial fibrillation with RVR Current Visit: Yes Status: Acute New onset atrial fibrillation. Currently A. fib in the 90s. BP 119/86 Echo: EF of 50-55% with severe tricuspid regurgitation -Continue Lopressor 12.5 BID and Cardizem CD 240 mg -Currently on Eliquis for AC. -Patient HR has been below 110 since 13:00 on 04/06. We will sign off. Patient will need to be seen by cardiology outpatient upon discharge. (2) Acute congestive heart failure Current Visit: Yes Status: Acute Bilateral pleural effusions. Pulmonology following. -Net I&O -4360ml. -CXR 04/06 with Persistent small bilateral pleural effusions Qualifiers: Heart failure type: diastolic Qualified Code(s): I50.31 - Acute diastolic (congestive) heart failure (3) Pulmonary hypertension Current Visit: Yes Status: Acute (4) Acute respiratory failure with hypoxia and hypercapnia Current Visit: Yes Status: Acute Per Cardiology: Bilateral pleural effusions. Pulmonology following. Net I&O -3730ml. (5) Change in mental status Current Visit: Yes Status: Acute Per Cardiology: Neurology following. Qualifiers: Altered mental status type: delirium Qualified Code(s): R41.0 - Disorientation, unspecified (6) History of hypertension Current Visit: No Status: Chronic Discussion w patient/family: The assessment and plan as outlined above was discussed with the patient and/or family members who expressed understanding and agreement. All questions were an swered. Thank you for involving us in the care of your patient. Please call with any questions. Subjective Principal diagnosis: Altered mental state, afib Interval history: Patient sitting comfortably talking with daughter upon entering the room. Discussed with daughter and patient that her heart rate is now controlled on current Cardizem dose. Patient continues to be fairly confused, but told daughter she will need to continue to take her Cardizem as it is important for her heart rate control. Patient denies chest pain, shortness of breath, palpitation, abdominal pain, nausea, vomiting, fever, or chills. Objective Vital Signs, Last 4 Hours Temp Pulse Resp BP Pulse Ox 04/07/19 07:51 17 98 04/07/19 07:20 98.8 F 94 20 119/86 98 04/07/19 05:16 98.8 F General: Conversant, No Apparent Distress HEENT: Atraumatic, Normocephaly, Mucus Membranes Moist Neck: No JVD, Normal carotid pulses Cardiac: Normal S1 and S2 (Irregularly irregular with heart rate around 90), No Murmur Lungs: Normal Breath Sounds, No Wheeze, Rales, Rhonchi Neuro: Alert and responsive, No focal deficits noted Abdomen: Soft, Non-Tender Skin: No rashes noted on visualized skin Musculoskeletal: No Chest Wall Tenderness Extremities: No Clubbing, No Cyanosis, Normal Pulses Results 04/07/19 04:30 04/07/19 04:30 Lab Results 04/07/19 04/07/19 04:30 04:30 WBC 9.9 Hgb 11.7 Hct 37.1 Plt Count 244 Sodium 130 L Potassium 5.2 H Chloride 89 L Carbon Dioxide 38 H BUN 23 Creatinine 0.46 L Glucose 122 H Calcium 9.4 Total Bilirubin 0.8 AST 16 ALT 24 Alkaline Phosphatase 56 Consult Discharge Plan - Plan Referrals: Kathrin Bowers, PASTE WORKER [Primary Care Provider] - <Bridget Perez - Last Filed: 04/07/19 20:06> Date of Encounter: 04/07/19 Assessment and Plan Discussion w patient/family: The assessment and plan as outlined above was discussed with the patient and/or family members who expressed understanding and agreement. All questions were answered. Thank you for involving us in the care of your patient. Please call with any questions. Objective Vital Signs, Last 4 Hours Resp Pulse Ox 04/07/19 15:55 17 94 Results 04/07/19 04:30 04/07/19 04:30 Lab Results 04/07/19 04/07/19 04:30 04:30 WBC 9.9 Hgb 11.7 Hct 37.1 Plt Count 244 Sodium 130 L Potassium 5.2 H Chloride 89 L Carbon Dioxide 38 H BUN 23 Creatinine 0.46 L Glucose 122 H Calcium 9.4 Total Bilirubin 0.8 AST 16 ALT 24 Alkaline Phosphatase 56 - Attending Attestation Patient was evaluated independently by me. Findings, assessment and plan were discussed in detail with patient, questions answered. Agree with nurse res ident's documentation. Addition as follows, 83yoCF ho HTN p/w dyspnea, AMS. Impr type II respiratory failure, suspected PNA, Afib RVR, HFpEF. Currently decreased O 2 requirement, rate ctr ok on CCB and BB. on eliquis. A: Afib, rate ctr ok, C score 5, on eliquis HFpEF, volume status improving Type II respiratory failure, improving P: c/w rate ctr and A/C regimen diuresis till Bun/Cr up trending call for questions Bridget Perez MD, PhD
[2019-04-07] MEDS: Apixaban 5 MG TABLET PO SCH ×2 (10:29→20:51)
[2019-04-07] MEDS: Doxycycline 100 MG CAPSULE PO SCH ×2 (10:29→20:51)
[2019-04-07] MEDS: Diltiazem CD (24hr) 240 MG CAPSULE PO SCH (10:30)
[2019-04-07] MEDS: Cefdinir 300 MG CAPSULE PO SCH ×2 (10:30→20:51)
--- NOTE | 2019-04-07 17:07 | Nephrology Consult Note ---
Date of Encounter: 04/07/19 Time of Encounter: 17:07 Assessment and Plan (1) Hyponatremia Current Visit: Yes Status: Acute Patient will hyponatremia associated with some diuretic use. Unclear if the hyponatremia is contributing to her mental status. We will be cautious with diuretics secondary to her having pulmonary hypertension. She may need incre ased sources of sodium. Avoid excess free water, And hypotonic fluids. Agree with continuing salt tablets. Overall her serum sodium seems to be improving with the current treatment. Can give trials of loop diuretics to see if her potassium decreases and her serum sodium increases. (2) Acute decompensated heart failure Current Visit: Yes Status: Acute Per the primary team. (3) Acute respiratory failure with hypoxia and hypercapnia Current Visit: Yes Status: Acute Per the primary team. (4) Pulmonary hypertension Current Visit: Yes Status: Acute History of Present Illness - Reason for Consult Consult date: 04/07/19 hyponatremia - Chief Complaint hyponatremia - History of Present Illness Ms. Torres is an 83 yo woman with a history of hypertension who presented to an outside hospital with weakness and was subsequently transferred to [facility] for further evaluation. [facility] was consulted for assistance with hyponatremia. At the time my evaluation the patient's breathing is better, but still slightly labored she denies chest pain no nausea, or vomiting. Remainder of her review of systems is either negative or stable. She does have some confusion so I am not certain that the complete review of systems is reliable. Past Med Surg Social Fam HX - Past Medical History Medical history: arthritis, hypertension Additional medical history: back pain Psychiatric history: no psych history - Past Surgical History Additional surgical history: lipoma removed - Social History Smoking Status: Never smoker - Family History Mother Hx Family Neuromuscular Disorders: Yes (Stroke) Medications and Allergies Metoprolol Tartrate 50 mg PO BID 04/02/19 [History] hydroCHLOROthiazide [Hydrochlorothiazide] 25 mg PO DAILY 04/02/19 [History] Allergy/AdvReac Type Severity Reaction Status Date / Time Penicillins Allergy Vomiting Verified 04/01/19 15:09 Review of Systems ROS unobtainable: due to mental status Exam - Vital Signs Vital signs: Initial Vital Signs Temp Pulse Resp BP Pulse Ox 97.8 F 85 18 105/78 91 04/01/19 15:24 04/01/19 15:24 04/01/19 15:24 04/01/19 15:24 04/01/19 15:24 Vital Signs - Last 8 Hours Temp Pulse Resp BP Pulse Ox 04/07/19 15:55 17 94 04/07/19 15:20 98.8 F 85 16 116/74 93 04/07/19 11:39 17 92 Intake and Output 04/07/19 04/07/19 04/07/19 07:59 15:59 23:59 Intake Total 0 / 960 960 / 960 Output Total 200 / 200 Balance -200 / 760 960 / 760 Intake: Oral 0 / 960 960 / 960 Output: Catheter 200 / 200 Other: Meal Lunch Percent of Meal Consumed 50% Weight 88 kg Patient Weight 04/07/19 23:59 Weight 88 kg - General Appearance General appearance: well-developed, well-nourished EENT: ATNC Respiratory: course breath sounds Cardiology: regular rate Neurologic: alert and oriented x3 Musculoskeletal: no cyanosis Psychiatric: mood/affect appropriate Results - Lab Results 04/10/19 06:15 04/10/19 06:15 Most recent lab results 04/07/19 04:30 Calcium 9.4 Consult Discharge Plan - Plan Referrals: Kathrin Bowers, EXPERIENCE DESIGN DIRECTOR [Primary Care Provider] -
--- NOTE | 2019-04-07 17:42 | Internal Med Progress Note ---
Hospitalist Progress Note - Encounter Date of Encounter: 04/07/19 Time of Encounter: 10:00 - Subjective Interval History: Patient was seen and examined. She looks more alert, oriented and awake. She denied chest pain, shortness of breath or palpitation. - Exam Vitals: Temp Pulse Resp BP Pulse Ox 98.8 F 85 17 116/74 94 04/07/19 15:20 04/07/19 15:20 04/07/19 15:55 04/07/19 15:20 04/07/19 15:55 Exam: General: Patient is alert, oriented 3. ENT: Mucous membranes moist Respiratory: Diminished breath sounds at both bases. Cardiovascular: Irregularly irregular rhythm with normal rate No pedal edema Abdomen: Abdomen is soft, nontender. Bowel sounds are present Musculoskeletal: Spontaneously moving all extremities Skin: warm, dry, intact. Neuro: Alert and oriented 3. - Assessment and Plan (1) Atrial fibrillation Current Visit: Yes Status: Acute (2) Acute congestive heart failure Current Visit: Yes Status: Acute (3) Acute respiratory failure with hypoxia and hypercapnia Current Visit: Yes Status: Acute (4) History of hypertension Current Visit: Yes Status: Chronic (5) DVT prophylaxis Current Visit: Yes Status: Acute (6) Change in mental status Current Visit: Yes Status: Resolved (7) Hyponatremia Current Visit: Yes Status: Acute - Summary of Assessment and Plan Summary of Assessment and Plan: Ms. Torres is a 83 year old female with past medical history significant for hypertension and osteoarthritis who originally presented to [facility] for shortness of breath associated with generalized weakness, productive cough, nasal congestion and abdominal pain The initial workup at the hospital ED showed sodium 129, proBNP 2552. Pro-calcitonin < 0.05, the rest of CBC and BMP were unremarkable. Cardiac enzyme was negative. EKG demonstrated atrial fibrillation with rapid ventricular response and multiple PVCs. A CT of abdomen/pelvis was performed which revealed moderate ascites with bilateral pleural effusions, cholelithiasis, and aortic atherosclerosis. Acute encephalopathy: Improving - Most likely delirium related to ing and prolonged hospital stay with underlying acute illnesses. - Her CO2 improved today after using BiPAP yesterday, We will use BiPAP as needed, treat hyponatremia as those could be contributing to her delirium - MRI of the brain at presentation was negative for acute stroke. EEG is normal - Spoke to the family, frequent reorientation. - ammonia level was normal Acute hypoxic/hypercapnic respiratory failure: - CTA at presentation was negative for PE however it did reveal bilateral pleural effusion, R>L, with bilateral atelectasis. Upper abdominal ascites. CXR 04/06 persistent small bilateral pleural effusion with left basilar air space opacity which is unchanged. - Patient currently on 4 L O2 supplementation with nasal cannula. - Suspect due to pneumonia, on oral cefdinir and doxycycline - continue IS and flatter valve Macroyctic anemia: - check fOLIC ACID and B12 levels. Acute on chronic diastolic heart failure: - Concern for right-sided/diastolic heart failure. i/o is -3.4 L Does not appear to be volume overloaded at this time. 2-D echocardiogram shows EF of 50- 55% with mild pulmonary hypertension. Right ventricle has grossly reduced function. Mild Pulmonary hypertension: -Mild pulmonary hypertension per echocardiogram. Hyponatremia: imrpoved -Stable. Cortisol level and TSH is normal. low urine NA but high osmolarity which correlate with dehydration like picture vs ? SIADH. Continue with fluid restriction. Will add salt tablets also for now. -cHECK bmP TOMORROW. Nephrology is consulted, appreciate recommendations. Atrial fibrillation with RVR: - Controlled heart rate with Cardizem 240 mg grams per day and lopressor 12.5 BID. - On anticoagulation with Eliquis. Endometrial lesion: - Ct abdomen revealed abnormal hypoattenuation in the centrum endometria, concerning for hyperplasia or neoplastic process. - Pelvis ultrasound today revealed thickened endometrial stripe measuring 1.3 cm with cystic spaces consistent with endometrial carcinoma or hyperplasia. Discussed this with the family and the patient. - Family is leaning towards outpatient follow-up and management after her active infection, weakness results. DVT ppx: Eliquis. - Time Spent with Patient Total time spent is greater than 50% in coordination of care (as documented) at patient's floor/unit and/or counseling patient: Plan of Care Discussed with: patient Internal Medicine: Result - Labs CBC & Chem 7: 04/07/19 04:30 04/07/19 04:30 Labs: Short CBC 04/07/19 Range/Units 04:30 WBC 9.9 (4.3-11.1) K/mcL Hgb 11.7 (11.5-15.4) g/dL Hct 37.1 (35.3-44.9) % Plt Count 244 (140-400) K/mcL BMP 04/07/19 04:30 Sodium 130 L Potassium 5.2 H Chloride 89 L Carbon Dioxide 38 H BUN 23 Creatinine 0.46 L Glucose 122 H Calcium 9.4 Liver Function 04/07/19 Range/Units 04:30 Total Bilirubin 0.8 (0.3-1.0) mg/dL AST 16 (13-39) Units/L ALT 24 (7-52) Units/L Alkaline Phosphatase 56 (34-104) Units/L Albumin 3.6 (3.5-5.7) g/dL - ABG Interpretation ABG results: ABG ABG pH 7.36 pH Units (7.32-7.45) 04/06/19 13:15 ABG pCO2 73 mmHg (35-45) H* 04/06/19 13:15 ABG pO2 54 mmHg (85-104) L 04/06/19 13:15 ABG O2 Saturation 85 % (95-98) L 04/06/19 13:15 - Impressions Impressions Chest X-Ray 04/06/19 07:00 IMPRESSION: Persistent small bilateral pleural effusions. Left basilar airspace opacity is unchanged. D/ / 04/06/2019 08:42:15 Ines Simmons MD / [facility] [place] Interpreting Provider: Ines Simmons MD Pelvis Ultrasound 04/07/19 14:30 IMPRESSION: Thickened endometrial stripe measuring 1.3 cm with cystic spaces. Finding is considered abnormal in a postmenopausal patient. Differential considerations include endometrial carcinoma and hyperplasia. Nonvisualization of the left ovary. Normal right ovary. D/ / 04/07/2019 15:23:39 Kaley Zamora MD / [facility] Interpreting Provider: Kaley Zamora MD Consult Discharge Plan - Plan Referrals: Kathrin Bowers, TEACHING YOUNG [Primary Care Provider] - (1) Atrial fibrillation Qualifiers: Atrial fibrillation type: unspecified Qualified Code(s): I48.91 - Unspecified atrial fibrillation (2) Acute congestive heart failure Qualifiers: Heart failure type: diastolic Qualified Code(s): I50.31 - Acute diastolic (congestive) heart failure (6) Change in mental status Qualifiers: Altered mental status type: delirium Qualified Code(s): R41.0 - Disorientation, unspecified
[2019-04-08 03:20] LABS: VBG HCO3 40 mEq/L (21-27); VBG PCO2 72 mmHg (41-51); VBG PH 7.36 pH Units (7.32-7.42); VBG PO2 77 mmHg (25-50)
[2019-04-08 03:30] LABS: Hematocrit 34.9 % (35.3-44.9); Hemoglobin 11.2 g/dL (11.5-15.4); Mean Corpuscular HGB Conc 32.1 g/dL (31.6-35.5); Mean Corpuscular Hemoglobin 33.9 pg (28.0-33.3); Mean Corpuscular Volume 105.8 fL (83.0-100.0); Mean Platelet Volume 8.9 fL (9.4-12.4); Platelet Count 237 K/mcL (140-400); Red Cell Distribution Width 14.3 % (11.5-14.5); White Blood Count 9.9 K/mcL (4.3-11.1)
[2019-04-08 03:33] LABS: BUN/Creatinine Ratio 60 (6-26); Blood Urea Nitrogen 25 mg/dL (8-23); Calcium 8.8 mg/dL (8.6-10.3); Carbon Dioxide 39 mEq/L (23-29); Chloride 90 mEq/L (98-107); Glucose 113 mg/dL (70-105); Osmolality,Calculated 279 (280-300); Potassium 4.8 mEq/L (3.5-5.1); Sodium 132 mEq/L (136-145); eGFR For African Americans > 60 (> 60); eGFR For Non-African Americans > 60 (> 60)
[2019-04-08] MEDS: Ipratropium/Albuterol Neb 3 ML IH SCH ×7 (04:39→23:38)
[2019-04-08] MEDS: Doxycycline 100 MG CAPSULE PO SCH ×2 (08:33→21:17)
[2019-04-08] MEDS: Cefdinir 300 MG CAPSULE PO SCH ×2 (08:33→21:17)
[2019-04-08] MEDS: Diltiazem CD (24hr) 240 MG CAPSULE PO SCH (08:36)
[2019-04-08] MEDS: Apixaban 5 MG TABLET PO SCH ×2 (08:37→21:17)
--- NOTE | 2019-04-08 18:19 | Internal Med Progress Note ---
Hospitalist Progress Note - Encounter Date of Encounter: 04/08/19 Time of Encounter: 10:00 - Subjective Interval History: Patient was seen and examined. She looks more alert, oriented and awake. She denied chest pain, shortness of breath or palpitation. - Exam Vitals: Temp Pulse Resp BP Pulse Ox 98.3 F 92 20 115/83 93 04/08/19 15:00 04/08/19 15:00 04/08/19 16:44 04/08/19 15:00 04/08/19 16:44 Exam: General: Patient is alert, oriented 3. ENT: Mucous membranes moist Respiratory: Diminished breath sounds at both bases. Cardiovascular: Irregularly irregular rhythm with normal rate No pedal edema Abdomen: Abdomen is soft, nontender. Bowel sounds are present Musculoskeletal: Spontaneously moving all extremities Skin: warm, dry, intact. Neuro: Alert and oriented 3. - Assessment and Plan (1) Atrial fibrillation Current Visit: Yes Status: Acute (2) Acute congestive heart failure Current Visit: Yes Status: Acute (3) Acute respiratory failure with hypoxia and hypercapnia Current Visit: Yes Status: Acute (4) History of hypertension Current Visit: Yes Status: Chronic (5) DVT prophylaxis Current Visit: Yes Status: Acute (6) Change in mental status Current Visit: Yes Status: Resolved (7) Hyponatremia Current Visit: Yes Status: Acute - Summary of Assessment and Plan Summary of Assessment and Plan: Ms. Torres is a 83 year old female with past medical history significant for hypertension and osteoarthritis who originally presented to [facility] for shortness of breath associated with generalized weakness, productive cough, nasal congestion and abdominal pain The initial workup at the hospital ED showed sodium 129, proBNP 2552. Pro-calcitonin < 0.05, the rest of CBC and BMP were unremarkable. Cardiac enzyme was negative. EKG demonstrated atrial fibrillation with rapid ventricular response and multiple PVCs. A CT of abdomen/pelvis was performed which revealed moderate ascites with bilateral pleural effusions, cholelithiasis, and aortic atherosclerosis. Acute encephalopathy: Improving - Most likely delirium related to ing and prolonged hospital stay with underlying acute illnesses. - Her CO2 improved today after using BiPAP yesterday, We will use BiPAP as needed, treat hyponatremia as those could be contributing to her delirium - MRI of the brain at presentation was negative for acute stroke. EEG is normal - Spoke to the family, frequent reorientation. - ammonia level was normal Acute hypoxic/hypercapnic respiratory failure: - CTA at presentation was negative for PE however it did reveal bilateral pleural effusion, R>L, with bilateral atelectasis. Upper abdominal ascites. CXR 04/06 persistent small bilateral pleural effusion with left basilar air space opacity which is unchanged. - Patient currently on 4-5 L O2 supplementation with nasal cannula. - Suspect due to pneumonia, on oral cefdinir and doxycycline - continue IS and flatter valve - Nocturnal O2 tonight for [facility] Macroyctic anemia: - checkED fOLIC ACID and B12 levels AND BOTH NORMAL. Acute on chronic diastolic heart failure: - Concern for right-sided/diastolic heart failure. i/o is -3.4 L Does not appear to be volume overloaded at this time. 2-D echocardiogram shows EF of 50- 55% with mild pulmonary hypertension. Right ventricle has grossly reduced function. Mild Pulmonary hypertension: -Mild pulmonary hypertension per echocardiogram. Hyponatremia: imrpoved -Stable. Cortisol level and TSH is normal. low urine NA but high osmolarity which correlate with dehydration like picture vs ? SIADH. Continue with fluid restriction. Will add salt tablets also for now. -cHECK bmP TOMORROW. Nephrology is consulted, appreciate recommendations. Atrial fibrillation with RVR: - Controlled heart rate with Cardizem 240 mg grams per day and lopressor 12.5 BID. - On anticoagulation with Eliquis. Endometrial lesion: - Ct abdomen revealed abnormal hypoattenuation in the centrum endometria, concerning for hyperplasia or neoplastic process. - Pelvis ultrasound today revealed thickened endometrial stripe measuring 1.3 cm with cystic spaces consistent with endometrial carcinoma or hyperplasia. Discussed this with the family and the patient. - Family is leaning towards outpatient follow-up and management after her active infection, weakness results. DVT ppx: Eliquis. - Time Spent with Patient Total time spent is greater than 50% in coordination of care (as documented) at patient's floor/unit and/or counseling patient: Plan of Care Discussed with: patient Internal Medicine: Result - Labs CBC & Chem 7: 04/08/19 03:00 04/08/19 03:00 Labs: Short CBC 04/08/19 Range/Units 03:00 WBC 9.9 (4.3-11.1) K/mcL Hgb 11.2 L (11.5-15.4) g/dL Hct 34.9 L (35.3-44.9) % Plt Count 237 (140-400) K/mcL BMP 04/08/19 03:00 Sodium 132 L Potassium 4.8 Chloride 90 L Carbon Dioxide 39 H BUN 25 H Creatinine 0.42 L Glucose 113 H Calcium 8.8 - ABG Interpretation ABG results: ABG ABG pH 7.36 pH Units (7.32-7.45) 04/06/19 13:15 ABG pCO2 73 mmHg (35-45) H* 04/06/19 13:15 ABG pO2 54 mmHg (85-104) L 04/06/19 13:15 ABG O2 Saturation 85 % (95-98) L 04/06/19 13:15 Consult Discharge Plan - Plan Referrals: Kathrin Bowers CNP [Primary Care Provider] - (1) Atrial fibrillation Qualifiers: Atrial fibrillation type: unspecified Qualified Code(s): I48.91 - Unspecified atrial fibrillation (2) Acute congestive heart failure Qualifiers: Heart failure type: diastolic Qualified Code(s): I50.31 - Acute diastolic (congestive) heart failure (6) Change in mental status Qualifiers: Altered mental status type: delirium Qualified Code(s): R41.0 - Disorientation, unspecified
--- NOTE | 2019-04-08 23:42 | Nephrology Progress Note ---
Date of Encounter: 04/08/19 Time of Encounter: 23:42 - Assessment and Plan (1) Hyponatremia Current Visit: Yes Status: Acute The patient's serum sodium seems to be trending upward. Family feels that her mental status improved. To me she seems to be slightly confused, but more oriented than the day before. Her hyponatremia is relatively mild and should continue to correct. (2) Acute congestive heart failure Current Visit: Yes Status: Acute Qualifiers: Heart failure type: diastolic Qualified Code(s): I50.31 - Acute diastolic (congestive) heart failure (3) Atrial fibrillation Current Visit: Yes Status: Acute Qualifiers: Atrial fibrillation type: unspecified Qualified Code(s): I48.91 - Unspeci fied atrial fibrillation (4) Pulmonary hypertension Current Visit: Yes Status: Acute Subjective Principal diagnosis: Altered mental state, afib Interval history: The patient was seen. She is very talkative, however, her family thinks that her mental status is greatly improved. She recalls seeing me the previous day and she recalls my name. Nonetheless, she is very talkative and very difficult to redirect. She begins by telling me about when her mother was born and then proceeds to go into a story about when she got . He went family tries to redirect her he quickly states she is getting to the point and then goes back to her story. She does state she feels better and she has no new complaints. Objective - Vital Signs Vital signs: Vital Signs Temp Pulse Resp BP Pulse Ox 04/08/19 23:40 16 94 04/08/19 23:07 90 04/08/19 22:48 90 04/08/19 20:08 16 96 04/08/19 16:44 20 93 04/08/19 15:00 98.3 F 92 16 115/83 100 04/08/19 12:12 16 94 04/08/19 11:46 92 120/68 100 04/08/19 07:44 98.3 F 102 24 122/77 92 04/08/19 04:40 31 97 04/08/19 04:35 98.6 F 73 20 105/68 100 04/08/19 00:01 23 98 Intake and Output 04/08/19 04/08/19 04/08/19 07:59 15:59 23:59 Intake Total 100 / 100 0 / 100 Output Total 400 / 400 0 / 400 Balance -400 / -300 100 / -300 0 / -300 Intake: Oral 100 / 100 0 / 100 Output: Urine 0 / 0 Catheter 400 / 400 Other: Meal Lunch Dinner Percent of Meal Consumed 90% 50% # Voids 1 # Urine Diapers 1 Weight 87.8 kg Patient Weight 04/08/19 23:59 Weight 87.8 kg - General Appearance General appearance: Present: well-developed, well-nourished EENT: Present: ATNC Neck: Present: supple Cardiology: Present: regular rate Musculoskeletal: Present: no cyanosis Psychiatric: Present: mood/affect appropriate - Lab 04/10/19 06:15 04/10/19 06:15 Consult Discharge Plan - Plan Referrals: Kathrin Bowers CNP [Primary Care Provider] -
[2019-04-09] MEDS: Ipratropium/Albuterol Neb 3 ML IH SCH ×5 (04:32→20:55)
[2019-04-09] MEDS ORDERED: Haloperidol Lactate 5 MG/ML VIAL IVP ONE ×2 (08:22→08:30)
[2019-04-09 10:13] LABS: ABG Base Excess 11 mEq/L (-2 to 3); ABG HCO3 36 mEq/L (21-27); ABG Oxygen Saturation 95 % (95-98); ABG PCO2 51 mmHg (35-45); ABG PH 7.46 pH Units (7.32-7.45); ABG PO2 73 mmHg (85-104); ABG TCO2 38 mEq/L (20-26); Blood Gas Modality AVAPS; Blood Gas PEEP 8 cm H2O; Blood Gas VT 500 cc
[2019-04-09] MEDS: Apixaban 5 MG TABLET PO SCH ×2 (11:46→21:15)
[2019-04-09] MEDS: Diltiazem CD (24hr) 240 MG CAPSULE PO SCH (11:46)
[2019-04-09] MEDS: Cefdinir 300 MG CAPSULE PO SCH ×2 (11:46→21:14)
[2019-04-09] MEDS: Doxycycline 100 MG CAPSULE PO SCH ×2 (11:46→21:14)
--- NOTE | 2019-04-09 17:58 | Internal Med Progress Note ---
Hospitalist Progress Note - Encounter Date of Encounter: 04/09/19 Time of Encounter: 10:00 - Subjective Interval History: Patient looks slightly confused this morning. She was trying to remove her BiPAP. She denied shortness of breath, chest pain or palpitation. - Exam Vitals: Temp Pulse Resp BP Pulse Ox 97.6 F 93 12 100/59 100 04/09/19 16:34 04/09/19 16:34 04/09/19 16:34 04/09/19 16:34 04/09/19 16:34 Exam: General: Patient is alert, oriented 1 ENT: Mucous membranes moist Respiratory: Diminished breath sounds at both bases. Cardiovascular: Irregularly irregular rhythm with normal rate No pedal edema Abdomen: Abdomen is soft, nontender. Bowel sounds are present Musculoskeletal: Spontaneously moving all extremities Skin: warm, dry, intact. Neuro: Alert and oriented 1. - Assessment and Plan (1) Atrial fibrillation Current Visit: Yes Status: Acute (2) Acute congestive heart failure Current Visit: Yes Status: Acute (3) Acute respiratory failure with hypoxia and hypercapnia Current Visit: Yes Status: Acute (4) History of hypertension Current Visit: Yes Status: Chronic (5) DVT prophylaxis Current Visit: Yes Status: Acute (6) Change in mental status Current Visit: Yes Status: Resolved (7) Hyponatremia Current Visit: Yes Status: Acute - Summary of Assessment and Plan Summary of Assessment and Plan: Ms. Torres is a 83 year old female with past medical history significant for hypertension and osteoarthritis who originally presented to [facility] for shortness of breath associated with generalized weakness, productive cough, nasal congestion and abdominal pain The initial workup at the hospital ED showed sodium 129, proBNP 2552. Pro-calcitonin < 0.05, the rest of CBC and BMP were unremarkable. Cardiac enzyme was negative. EKG demonstrated atrial fibrillation with rapid ventricular response and multiple PVCs. A CT of abdomen/pelvis was performed which revealed moderate ascites with bilateral pleural effusions, cholelithiasis, and aortic atherosclerosis. Acute encephalopathy: - Most likely delirium related to sundowning and prolonged hospital stay with underlying acute illnesses. - MRI of the brain at presentation was negative for acute stroke. EEG is normal - Spoke to the family, frequent reorientation. Acute hypoxic/hypercapnic respiratory failure: - CTA at presentation was negative for PE however it did reveal bilateral pleural effusion, R>L, with bilateral atelectasis. Upper abdominal ascites. CXR 04/06 persistent small bilateral pleural effusion with left basilar air space opacity which is unchanged. - Patient currently on BIPAP. - Suspect due to pneumonia, on oral cefdinir and doxycycline - continue IS and flatter valve Macroyctic anemia: - checkED fOLIC ACID and B12 levels AND BOTH NORMAL. Acute on chronic diastolic heart failure: - Concern for right-sided/diastolic heart failure. i/o is -4.1 L Does not appear to be volume overloaded at this time. 2-D echocardiogram shows EF of 50- 55% with mild pulmonary hypertension. Right ventricle has grossly reduced function. Mild Pulmonary hypertension: -Mild pulmonary hypertension per echocardiogram. Hyponatremia: imrpoved -Stable. Cortisol level and TSH is normal. low urine NA but high osmolarity which correlate with dehydration like picture vs ? SIADH. Continue with fluid restriction. Will add salt tablets also for now. -cHECK bmP TOMORROW. Nephrology is consulted, appreciate recommendations. Atrial fibrillation with RVR: - Controlled heart rate with Cardizem 240 mg grams per day and lopressor 12.5 BID. - On anticoagulation with Eliquis. Endometrial lesion: - Ct abdomen revealed abnormal hypoattenuation in the centrum endometria, concerning for hyperplasia or neoplastic process. - Pelvis ultrasound today revealed thickened endometrial stripe measuring 1.3 cm with cystic spaces consistent with endometrial carcinoma or hyperplasia. Discussed this with the family and the patient. - Family is leaning towards outpatient follow-up and management after her active infection, weakness results. DVT ppx: Eliquis. - Time Spent with Patient Total time spent is greater than 50% in coordination of care (as documented) at patient's floor/unit and/or counseling patient: Internal Medicine: Result - Labs CBC & Chem 7: 04/08/19 03:00 04/08/19 03:00 - ABG Interpretation ABG results: ABG ABG pH 7.46 pH Units (7.32-7.45) H 04/09/19 10:10 ABG pCO2 51 mmHg (35-45) H 04/09/19 10:10 ABG pO2 73 mmHg (85-104) L 04/09/19 10:10 ABG O2 Saturation 95 % (95-98) 04/09/19 10:10 Consult Discharge Plan - Plan Referrals: Kathrin Bowers CNP [Primary Care Provider] - (1) Atrial fibrillation Qualifiers: Atrial fibrillation type: unspecified Qualified Code(s): I48.91 - Unspecified atrial fibrillation (2) Acute congestive heart failure Qualifiers: Heart failure type: diastolic Qualified Code(s): I50.31 - Acute diastolic (congestive) heart failure (6) Change in mental status Qualifiers: Altered mental status type: delirium Qualified Code(s): R41.0 - Disorientation, unspecified
--- NOTE | 2019-04-09 19:27 | Nephrology Progress Note ---
Date of Encounter: 04/09/19 Time of Encounter: 19:27 - Assessment and Plan (1) Hyponatremia Current Visit: Yes Status: Acute The patient's serum sodium appears to be relatively stable and is slightly low. Her potassium is back to normal. At this time we will sign off. Please call or reconsult if any additional assistance is needed. (2) Acute congestive heart failure Current Visit: Yes Status: Acute Qualifiers: Heart failure type: diastolic Qualified Code(s): I50.31 - Acute diastolic (congestive) heart failure (3) Atrial fibrillation Current Visit: Yes Status: Acute Qualifiers: Atrial fibrillation type: unspecified Qualified Code(s): I48.91 - Unspecified atrial fibrillation (4) Pulmonary hypertension Current Visit: Yes Status: Acute Subjective Principal diagnosis: Altered mental state, afib Interval history: The patient was seen. She has no new complaints. Her review of systems stable. Objective - Vital Signs Vital signs: Vital Signs Temp Pulse Resp BP Pulse Ox 04/09/19 16:34 97.6 F 93 12 100/59 100 04/09/19 15:49 13 100 04/09/19 12:00 98.4 F 74 18 118/70 100 04/09/19 10:49 31 97 04/09/19 08:45 97.5 F L 89 15 124/74 98 04/09/19 07:35 24 91 04/09/19 05:54 85 04/09/19 04:39 16 97 04/08/19 23:40 16 94 04/08/19 23:07 90 04/08/19 22:48 90 04/08/19 20:08 16 96 Intake and Output 04/09/19 04/09/19 04/09/19 07:59 15:59 23:59 Intake Total 0 / 0 Balance 0 / 0 Intake: Oral 0 / 0 Other: Meal Lunch Percent of Meal Consumed 0% # Urine Diapers 1 1 - General Appearance General appearance: Present: well-developed, well-nourished, obese EENT: Present: ATNC Additional Comments: Tachycardic Musculoskeletal: Present: no cyanosis Psychiatric: Present: mood/affect appropriate - Lab 04/10/19 06:15 04/10/19 06:15 Most recent lab results 04/09/19 10:10 ABG pH 7.46 H ABG pCO2 51 H ABG pO2 73 L ABG HCO3 36 H ABG O2 Saturation 95 Consult Discharge Plan - Plan Referrals: Kathrin Bowers, MAYRA [Primary Care Provider] -
[2019-04-10] MEDS: Ipratropium/Albuterol Neb 3 ML IH SCH ×7 (00:38→23:57)
[2019-04-10 04:10] LABS: VBG HCO3 34 mEq/L (21-27); VBG PCO2 51 mmHg (41-51); VBG PH 7.43 pH Units (7.32-7.42); VBG PO2 102 mmHg (25-50)
[2019-04-10 06:33] LABS: Basophils # 0.1 K/mcL (0.0-0.2); Basophils % 0.5 %; Eosinophils # 0.2 K/mcL (0.0-0.6); Eosinophils % 2.1 %; Hematocrit 34.1 % (35.3-44.9); Hemoglobin 11.3 g/dL (11.5-15.4); Immature Granulocytes % 0.6 % (0-4); Lymphocytes # 1.7 K/mcL (0.6-4.6); Lymphocytes % 16.5 %; Mean Corpuscular HGB Conc 33.1 g/dL (31.6-35.5); Mean Corpuscular Hemoglobin 33.7 pg (28.0-33.3); Mean Corpuscular Volume 101.8 fL (83.0-100.0); Mean Platelet Volume 8.8 fL (9.4-12.4); Monocytes # 1.1 K/mcL (0.0-1.3); Monocytes % 10.8 %; Platelet Count 233 K/mcL (140-400); Red Blood Count 3.35 M/mcL (3.82-4.97); Red Cell Distribution Width 14.1 % (11.5-14.5); Segmented Neutrophils % 69.5 %
[2019-04-10 06:58] LABS: BUN/Creatinine Ratio 35 (6-26); Blood Urea Nitrogen 15 mg/dL (8-23); Calcium 8.7 mg/dL (8.6-10.3); Carbon Dioxide 35 mEq/L (23-29); Chloride 89 mEq/L (98-107); Glucose 99 mg/dL (70-105); Osmolality,Calculated 279 (280-300); Sodium 134 mEq/L (136-145); eGFR For African Americans > 60 (> 60); eGFR For Non-African Americans > 60 (> 60)
[2019-04-10] MEDS: Apixaban 5 MG TABLET PO SCH ×2 (09:17→22:22)
[2019-04-10] MEDS: Diltiazem CD (24hr) 240 MG CAPSULE PO SCH (09:17)
[2019-04-10] MEDS: Cefdinir 300 MG CAPSULE PO SCH (09:18)
[2019-04-10] MEDS: Doxycycline 100 MG CAPSULE PO SCH (09:18)
--- NOTE | 2019-04-10 16:39 | Internal Med Progress Note ---
Hospitalist Progress Note - Encounter Date of Encounter: 04/10/19 Time of Encounter: 10:00 - Subjective Interval History: No major events overnight. Patient was seen this a.m. sHe denied fever, chills or night sweats. sHe has no nausea, vomiting or abdominal pain. Patient denied chest pain, shortness of breath or palpitation. - Exam Vitals: Temp Pulse Resp BP Pulse Ox 98.4 F 69 14 111/71 89 04/10/19 15:42 04/10/19 15:42 04/10/19 15:43 04/10/19 15:42 04/10/19 15:43 Exam: General: Patient is alert, oriented 3 ENT: Mucous membranes moist Respiratory: We are to auscultation Cardiovascular: Irregularly irregular rhythm with normal rate No pedal edema Abdomen: Abdomen is soft, nontender. Bowel sounds are present Musculoskeletal: Spontaneously moving all extremities Skin: warm, dry, intact. Neuro: Alert and oriented 3. - Assessment and Plan (1) Atrial fibrillation Current Visit: Yes Status: Acute (2) Acute congestive heart failure Current Visit: Yes Status: Acute (3) Acute respiratory failure with hypoxia and hypercapnia Current Visit: Yes Status: Acute (4) History of hypertension Current Visit: Yes Status: Chronic (5) DVT prophylaxis Current Visit: Yes Status: Acute (6) Change in mental status Current Visit: Yes Status: Resolved (7) Hyponatremia Current Visit: Yes Status: Acute - Summary of Assessment and Plan Summary of Assessment and Plan: Ms. Torres is a 83 year old female with past medical history significant for hypertension and osteoarthritis who originally presented to [facility] for shortness of breath associated with generalized weakness, productive cough, nasal congestion and abdominal pain The initial workup at the hospital ED showed sodium 129, proBNP 2552. Pro-calcitonin < 0.05, the rest of CBC and BMP were unremarkable. Cardiac enzyme was negative. EKG demonstrated atrial fibrillation with rapid ventricular response and multiple PVCs. A CT of abdomen/pelvis was performed which revealed moderate ascites with bilateral pleural effusions, cholelithiasis, and aortic atherosclerosis. Acute encephalopathy: Resolved - Most likely delirium related to sundowning and prolonged hospital stay with underlying acute illnesses. - MRI of the brain at presentation was negative for acute stroke. EEG is normal Acute hypoxic/hypercapnic respiratory failure: - CTA at presentation was negative for PE however it did reveal bilateral pleu ral effusion, R>L, with bilateral atelectasis. Upper abdominal ascites. CXR 04/06 persistent small bilateral pleural effusion with left basilar air space opacity which is unchanged. - Suspect due to pneumonia, finished oral cefdinir and doxycycline - continue IS and flatter valve Macroyctic anemia: - checkED fOLIC ACID and B12 levels AND BOTH NORMAL. Acute on chronic diastolic heart failure: - Concern for right-sided/diastolic heart failure. i/o is -4.1 L Does not appear to be volume overloaded at this time. 2-D echocardiogram shows EF of 50- 55% with mild pulmonary hypertension. Right ventricle has grossly reduced function. Mild Pulmonary hypertension: -Mild pulmonary hypertension per echocardiogram. Hyponatremia: imrpoved -Stable. Atrial fibrillation with RVR: - Controlled heart rate with Cardizem 240 mg grams per day and lopressor 12.5 BID. - On anticoagulation with Eliquis. Endometrial lesion: - Ct abdomen revealed abnormal hypoattenuation in the centrum endometria, c oncerning for hyperplasia or neoplastic process. - Pelvis ultrasound today revealed thickened endometrial stripe measuring 1.3 cm with cystic spaces consistent with endometrial carcinoma or hyperplasia. Discussed this with the family and the patient. - Family is leaning towards outpatient follow-up and management after her active infection, weakness results. DVT ppx: Eliquis. - Time Spent with Patient Total time spent is greater than 50% in coordination of care (as documented) at patient's floor/unit and/or counseling patient: Internal Medicine: Result - Labs CBC & Chem 7: 04/10/19 06:15 04/10/19 06:15 Labs: Short CBC 04/10/19 Range/Units 06:15 WBC 10.0 (4.3-11.1) K/mcL Hgb 11.3 L (11.5-15.4) g/dL Hct 34.1 L (35.3-44.9) % Plt Count 233 (140-400) K/mcL Neutrophils # 7.0 (1.6-8.9) K/mcL BMP 04/10/19 06:15 Sodium 134 L Potassium 4.0 Chloride 89 L Carbon Dioxide 35 H BUN 15 Creatinine 0.43 L Glucose 99 Calcium 8.7 - ABG Interpretation ABG results: ABG ABG pH 7.46 pH Units (7.32-7.45) H 04/09/19 10:10 ABG pCO2 51 mmHg (35-45) H 04/09/19 10:10 ABG pO2 73 mmHg (85-104) L 04/09/19 10:10 ABG O2 Saturation 95 % (95-98) 04/09/19 10:10 Consult Discharge Plan - Plan Referrals: Kathrin Bowers, SOIL SURVEYOR [Primary Care Provider] - (1) Atrial fibrillation Qualifiers: Atrial fibrillation type: unspecified Qualified Code(s): I48.91 - Unspecified atrial fibrillation (2) Acute congestive heart failure Qualifiers: Heart failure type: diastolic Qualified Code(s): I50.31 - Acute diastolic (congestive) heart failure (6) Change in mental status Qualifiers: Altered mental status type: delirium Qualified Code(s): R41.0 - Disorientation, unspecified
[2019-04-11] MEDS: Ipratropium/Albuterol Neb 3 ML IH SCH ×3 (04:23→12:01)
[2019-04-11 07:02] VITALS: BP 112/66
--- NOTE | 2019-04-11 08:11 | Discharge Summary ---
- NOTES TO OUTPATIENT PROVIDER Notes to Outpatient Provider: Patient was admitted for pneumonia and new onset A. fib. She finished course of antibiotics and place on rate control and anticoagulation for A. fib. She was also noted to have endometrial lesion on CT scan of the abdomen and ultrasound of the pelvis that needs outpatient follow-up with gynecology after she finished rehabilitation. Discussed this with the family and the patient who agreed with the plan. Orders not resulted at time of discharge: Pending orders 04/04/19 19:52 Urinalysis Reflex Cult & Micro [URIN] Stat Date of Encounter: 04/11/19 Time of Encounter: 09:00 - Discharge Diagnosis (1) Atrial fibrillation Priority: Primary Status: Resolved Qualifiers: Atrial fibrillation type: unspecified Qualified Code(s): I48.91 - Unspecified atrial fibrillation (2) Acute congestive heart failure Priority: Secondary Status: Resolved Qualifiers: Heart failure type: diastolic Qualified Code(s): I50.31 - Acute diastolic (congestive) heart failure (3) Acute respiratory failure with hypoxia and hypercapnia Priority: Secondary Status: Resolved (4) History of hypertension Priority: Secondary Status: Chronic (5) DVT prophylaxis Priority: Secondary Status: Acute (6) Change in mental status Priority: Secondary Status: Resolved Qualifiers: Altered mental status type: delirium Qualified Code(s): R41.0 - Disorientation, unspecified (7) Hyponatremia Priority: Secondary Status: Resolved (8) Lesion of endometrium Priority: Secondary Status: Acute (9) Pulmonary hypertension Priority: Secondary Status: Chronic Hospital course: Ms. Torres is a 83 year old female with history of hypertension as arthritis who was managed in the hospital for pneumonia and new onset A. fib. CTA of the chest was negative for PE however it revealed bilateral pleural effusion and pneumonia. She was also found to have mild pulmonary hypertension on her TTE. Pulmonary service was consulted and patient was placed on IV antibiotics, and intermittent BiPAP. Patient was qualified for BIPAP and nocturnal oxygen and meat counter worker helped to get dose sit up at jail. Patient was started on diltiazem, metoprolol and Eliquis for her A.fib. She was found to have endometrial lesion/thickening on her CT abdomen confirmed on ultrasound of the pelvis. Discussion with the patient and the family. With outpatient inorganic chemistry professor after she finished her course of rehabilitation and did agree with the plan. Her course was complicated with change in mental status and negative EEG and MRI of the brain. This was related to delirium and patient responded well to low-dose of Seroquel at bedtime. Today, patient is asymptomatic and hemodynamically stable. She will be discharged to [facility] in stable condition. Follow-up with a inorganic chemistry professor as outpatient. Discharge discussed with: patient - Time Spent with Patient Total time spent providing and/or coordinating discharge services: 45 minutes - Discharge Medications Prescriptions: New Diltiazem CD (24hr) [Cardizem CD] 240 mg PO DAILY cap.er.24h Bisacodyl [Dulcolax] 10 mg RC DAILY PRN supp.rect PRN Reason: Constipation Apixaban [Eliquis] 5 mg PO BID tablet Metoprolol [Lopressor] 12.5 mg PO BID tablet Mag Hydrox/Al Hydrox/Simeth [Maalox] 15 ml PO Q6HR PRN udc PRN Reason: Dyspepsia MOM Conc [MILK OF MAGNESIA conc] 10 ml PO DAILY PRN ud.liq PRN Reason: Constipation Polyethylene Glycol 3350 [MiraLAX] 17 gm PO DAILY powd.pack Quetiapine Fumarate [Seroquel] 12.5 mg PO HS tablet Discontinued Metoprolol Tartrate 50 mg PO BID hydroCHLOROthiazide [Hydrochlorothiazide] 25 mg PO DAILY Home Medications: Apixaban [Eliquis] 5 mg PO BID tablet 04/11/19 [Rx] Bisacodyl [Dulcolax] 10 mg RC DAILY PRN supp.rect 04/11/19 [Rx] Diltiazem CD (24hr) [Cardizem CD] 240 mg PO DAILY cap.er.24h 04/11/19 [Rx] MOM Conc [MILK OF MAGNESIA conc] 10 ml PO DAILY PRN ud.liq 04/11/19 [Rx] Mag Hydrox/Al Hydrox/Simeth [Maalox] 15 ml PO Q6HR PRN udc 04/11/19 [Rx] Metoprolol [Lopressor] 12.5 mg PO BID tablet 04/11/19 [Rx] Polyethylene Glycol 3350 [MiraLAX] 17 gm PO DAILY powd.pack 04/11/19 [Rx] Quetiapine Fumarate [Seroquel] 12.5 mg PO HS tablet 04/11/19 [Rx] Allergies/Adverse Reactions: Allergy/AdvReac Type Severity Reaction Status Date / Time Penicillins Allergy Vomiting Verified 04/01/19 15:09 Date of admission: 04/01/19 16:53 Primary care physician: Kathrin Bowers CNP Consults: 04/01/19 15:51 Consult to Invasive Line Access Team [CONS] Routine Reason for Consult: limitied access Line Type: EPIV 04/01/19 16:16 Consult to Pulmonology [CONS] Routine Consulting Provider: [facility] [place] Reason for Consult: CHF and respiratory failure Call Completed: Yes 04/02/19 09:35 Consult to Neurology [CONS] Routine Consulting Provider: Neurology [facility] Reason for Consult: AMS reported Time Notified: 09:36 Call Completed: Yes 04/02/19 13:20 Consult to Interpret Exam [CONS] Routine Consulting Provider: Donaldo Cuenca I Consult to Interpret Exam: Interpret EEG 04/02/19 13:50 Consult to Occupational Therapy [CONS] Routine Comment: Evaluate, develop and implement POC Reason for Consult: Gen weakness Does patient have active BEDREST order?: No Is patient medically & hemodynamically stable?: Yes Consult to Physical Therapy [CONS] Routine Comment: Evaluate, develop and implement POC Reason for Consult: Gen weakness Does patient have active BEDREST order?: No Is patient medically & hemodynamically stable?: Yes 04/03/19 16:29 Consult to Nurse Navigator [CONS] Routine Comment: CHF 04/03/19 22:07 Consult to Cardiology [CONS] Routine Comment: Consulting Provider: Cardiology Sarina Reason for Consult: Right Heart failure/ Afib - new diagnosis Call Completed: No 04/06/19 16:38 Consult to Nephrology [CONS] Routine Consulting Provider: Kidney Sarina/ORILOIS/WIN/SAMIA Reason for Consult: hyponatermia Call Completed: No - Constitutional Vitals: Temp Pulse Resp BP Pulse Ox 98.4 F 74 18 112/66 94 04/11/19 06:58 04/11/19 06:58 04/11/19 06:58 04/11/19 06:58 04/11/19 06:58 General appearance: Present: A&O X 3 Exam: General: Patient is alert, oriented 3. Head: Atraumatic, normal inspection, normocephalic. Eye: EOMI, PERRLA, no scleral icterus noted. ENT: Mucous membranes moist. Neck: Normal inspection, Respiratory: No respiratory distress, rhonchi, or wheezes noted. Cardiovascular: Regular rate and regular rhythm, S1 and S2 audible. GI: Soft, nondistended, normal bowel sounds. Extremities:No joint swelling, pedal edema, or tenderness noted. Neurological: Alert, oriented 3, no focal deficits. Psychiatric: normal affect, normal mood. Skin: Dry, intact, warm. Normal color. No rashes. - Patient Status Disposition: Transfer SNF Condition: Good Functional capacity at discharge: uses cane/walker Overall status at discharge: patient is back to baseline - Discharge Instructions Follow Up With: Kathrin Bowers, CORRECTIONAL OFFICER CAPTAIN [Primary Care Provider] - - Diet and Activity Activity: as per physical therapy, wear oxygen at all times Diet: low salt diet
--- NOTE | 2019-04-11 08:22 | Physician Discharge Referral ---
ExtendedCare Referral Info Transfer To: ECF Provider in Charge after Transfer: PCP Institutional Level of Care: Skilled - Diagnosis (1) Atrial fibrillation Priority: Primary Status: Resolved (2) Acute congestive heart failure Priority: Secondary Status: Resolved (3) Acute respiratory failure with hypoxia and hypercapnia Priority: Secondary Status: Resolved (4) History of hypertension Priority: Secondary Status: Chronic (5) DVT prophylaxis Priority: Secondary Status: Acute (6) Change in mental status Priority: Secondary Status: Resolved (7) Hyponatremia Priority: Secondary Status: Resolved (8) Lesion of endometrium Priority: Secondary Status: Acute (9) Pulmonary hypertension Priority: Secondary Status: Chronic Prognosis: Good - Transfer Medications Home Medications: Apixaban [Eliquis] 5 mg PO BID tablet 04/11/19 [Rx] Bisacodyl [Dulcolax] 10 mg RC DAILY PRN supp.rect 04/11/19 [Rx] Diltiazem CD (24hr) [Cardizem CD] 240 mg PO DAILY cap.er.24h 04/11/19 [Rx] MOM Conc [MILK OF MAGNESIA conc] 10 ml PO DAILY PRN ud.liq 04/11/19 [Rx] Mag Hydrox/Al Hydrox/Simeth [Maalox] 15 ml PO Q6HR PRN udc 04/11/19 [Rx] Metoprolol [Lopressor] 12.5 mg PO BID tablet 04/11/19 [Rx] Polyethylene Glycol 3350 [MiraLAX] 17 gm PO DAILY powd.pack 04/11/19 [Rx] Quetiapine Fumarate [Seroquel] 12.5 mg PO HS tablet 04/11/19 [Rx] Allergies/Adverse Reactions: Allergy/AdvReac Type Severity Reaction Status Date / Time Penicillins Allergy Vomiting Verified 04/01/19 15:09 - Respiratory Orders Oxygen / L per min (4), Other (Intermittent BiPAP. Frequent incentive spirometry use at least 6 times a day.) Smoking Cessation: Smoking cessation has been advised. For more information, call the [employer] Tobacco Quit Line at 6-019-JRWR-NOW. - Mobility Orders Chair (Sit on the chair> Lying on Bed), Ambulate (Physical therapy recommendation) - Rehabiliation Orders Rehab Orders: Evaluation for Physical Therapy, Evaluation for Occupational Therapy - Treatments Skin tear care topically daily PRN per policy, Fleet enema rectally every other day PRN cleansing purposes - Diet Orders Cardiac CERTIFICATION: I certify that the transfer of the above named patient to an Extended Care Facility is necessary for the continuing treatment of the diagnosis listed. The above information is true and accurate reflection of patient's current condition. Confidential - Redisclosure prohibited without a patient's written consent.
[2019-04-11] MEDS: Apixaban 5 MG TABLET PO SCH (09:23)
[2019-04-11] MEDS: Diltiazem CD (24hr) 240 MG CAPSULE PO SCH (09:23)
== END 2019-04-11 13:05 | DRG 291 ==
LOC: 3BNU → SUATTDRO 16:53 → 2NENU 22:46
PROVIDERS: ADMIT Internal Medicine; ATTEND Internal Medicine